=== PATIENT | female | born 1940 | race Caucasian/White ===

== ENCOUNTER 2019-04-13 19:40 | Emergency (ER) | payer MEDICARE, BC ==
[~2019-04-13 19:40] MED LIST: ISOVUE-370 76%-LOCM 1 ML ONE
[2019-04-13 21:19] LABS: #Eosinphils 0.4 thou/uL (0.0-0.7); #Lymphocytes 2.5 thou/uL (1.20-3.40); #Monocytes 0.5 thou/uL (0.11-0.59); #Neutrophils 2.7 thou/uL (1.40-6.50); %Basophils 0.5 % (0.0-1.0); %Eosinophils 5.9 % (0.0-10.0); %Lymphocytes 40.7 % (21.0-51.0); Hemoglobin 11.9 g/dL (12.0-16.0); Mean Corpuscular HGB CONC 34.5 g/dL (32.0-36.0); Mean Corpuscular Hemoglobin 30.1 pg (27.0-31.0); Mean Corpuscular Volume 87.4 fL (78.0-98.0); Mean Platelet Volume 6.8 fL (7.4-10.4); Platelet Count 211 thou/uL (130-400); Red Blood Cell (RBC) Count 3.96 mill/uL (4.20-5.40); White Blood Cell (WBC) Count 6.1 thou/uL (4.8-10.8)
--- NOTE | 2019-04-13 21:28 | RAD ---
RADIOGRAPH CHEST 1 VIEW: DATE: 04/13/2019 HISTORY: 79-year-old female with chest pain FINDINGS: There are no airspace densities, pulmonary edema, pneumothorax, or cardiomegaly. The lateral costophr enic angles are sharp. IMPRESSION: No acute cardiopulmonary findings.
--- NOTE | 2019-04-13 21:40 | CT ---
CT CERVICAL SPINE NONCONTRAST: DATE: 04/13/2019 HISTORY: 79-year-old female with cervicalgia FINDINGS: There are no jumped or perched facets. There is no evidence of acute fracture. The vertebral body hei ghts are maintained. There is no prevertebral soft tissue swelling. There is severe left-sided facet DJD at C2-3, C3-4, and C4-5. There is moderate right facet DJD at C3-4. The severe left facet D KATHIA causes a mild chronic grade 1 anterolisthesis of C4 on C5. There is no high-grade degenerative disc disease at any level. There is neural foraminal stenosis bilaterally at C3-4 and on the left at C4-5. No severe central spinal canal stenosis identified. There is irregular soft tissue density superiorly partial opacifying the left sphenoid air cell, which is incompletely imaged. There is appa rent osseous dehiscence between this disease sphenoid air cell and the sella turcica. IMPRESSION: 1. No evidence of acute fracture or acute traumatic subluxation. 2. Cervical spondylosis consisting of multilevel severe left-sided facet osteoarthrosis at upper and mid levels, and associated neural foraminal stenosis. 3. Severe partial opacification of sphenoid sinus. 4. Osseous dehiscence between sella turcica and this diseased left sphenoid air cell. Neurosurgical c onsultation and ENT consultation should be considered.
[2019-04-13 21:43] LABS: ALT (SGPT) 33 U/L (8-55); AST (SGOT) 27 U/L (5-34); Alkaline Phosphatase 66 U/L (40-110); Anion Gap 12 mmol/L (10-20); BUN (Urea Nitrogen) 15 mg/dL (9.8-20.1); Bilirubin, Total 0.2 mg/dL (0.2-1.2); CK (CPK) 124 U/L (29-168); Calc. Creatinine Clearance 0 mL/min (70-130); Calcium 9.2 mg/dL (7.8-10.44); Carbon Dioxide 25 mmol/L (23-31); Chloride 105 mmol/L (98-107); Estimated GFR-MDRD 59; Globulin 2.9 g/dL (2.4-3.5); Glucose 97 mg/dL (83-110); Lipase 83 U/L (8-78); Potassium 3.9 mmol/L (3.5-5.1); Protein, Total 6.9 g/dL (6.0-8.3); Sodium 138 mmol/L (136-145)
[2019-04-13] MEDS ORDERED: Morphine 4 MG/ML VIAL ONE (21:48)
--- NOTE | 2019-04-13 21:59 | RAD ---
Radiograph right shoulder 3 views: HISTORY: 79-year-old female with acute right shoulder pain FINDINGS: There is a tiny punctate soft tissue calcification very close to the lateral surface of the humeral h ead. No fracture, dislocation, or subluxation. Mild to moderate DJD at inferior aspect of glenohumeral joint. Mild DJD at AC joint. 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 The acute manifestation of this woul d be calcific tendinitis.
--- NOTE | 2019-04-13 22:46 | CT ---
CT ANGIOGRAM THORAX WITH CONTRAST: (CTA pulmonary angiogram) DATE: 04/13/2019 HISTORY: 78-year-old female with chest pain COMPARISON: No prior chest CTs. There is an abdominal and pelvic CT of 12/18/2018. TECHNIQUE: IV injection of iodinated contrast. Scan acquisition timing attempted to coincide with iodinated contrast bolus reaching maximal density in pulmonary arteries. 3-D MIP reconstructions. FINDINGS: In the left lower lobe, abutting the posterior lateral pleural surface, there is a tiny 0.4 x 0.4 x 0 .4 centimeter noncalcified pulmonary nodule which is unchanged since 4 months ago. At the anterolateral base of the right lower lobe, close to the pleural surface, there is what appear s to be a cluster of mildly dilated peripheral blood vessels. This is also unchanged since 4 months ago. The rest of the lungs are essentially clear. Trachea and major bronchi are patent and clear. No pleur al effusion, pulmonary edema, cardiomegaly, pneumothorax. No thoracic aortic aneurysm or dissection. No pericardial effusion. No evidence of pulmonary thromboembolism. No mediastinal or karla r lymphadenopathy. IMPRESSION: 1. No pulmonary thromboembolism. 2. No acute findings. 3. Nonspecific tiny 4 mm left lower lobe pulmonary nodule. Recommend serial follow-up chest CTs, kassie collins in 6 months.
[2019-04-13] MEDS ORDERED: Acetaminophen/Codeine 30-300mg Tablet ONE (23:06)
--- NOTE | 2019-04-16 15:22 | EKG ---
Test Reason : Blood Pressure : / mmHG Vent. Rate : 066 BPM Atrial Rate : 066 BPM P-R Int : 170 ms QRS Dur : 076 ms QT Int : 426 ms P-R-T Axes : 050 -14 011 degrees QTc Int : 446 ms Normal sinus rhythm Moderate voltage criteria for LVH, may be normal variant Borderline ECG Confirmed by CAROLA BLACK, ETHAN ([id number]), editor sound WINSOEM FELIX ([id number]) on 04/16/2019 3:22:13 PM Referred By: Confirmed By:ETHAN SRIVASTAVA MD
== END 2019-04-13 23:20 | disposition home or self-care (01) ==
LOC: ERS 19:40
DX: M75.31 Calcific tendinitis of right shoulder (principal); M54.12 Radiculopathy, cervical region; R91.1 Solitary pulmonary nodule; J32.9 Chronic sinusitis, unspecified; E11.9 Type 2 diabetes mellitus without complications
CPT/HCPCS: 36415; 71045; 71275; 72125; 80053; 82550; 83690; 83880; 84484; 85025; 85379; 85652; 86140; 93005; 96374; J2270; Q9966

== ENCOUNTER 2019-04-18 17:56 | Inpatient (IN) | payer MEDICARE, BC ==
[2019-04-18] MEDS ORDERED: Morphine 4 MG/ML VIAL ONE (18:50)
[2019-04-18] MEDS ORDERED: Ondansetron PF 4 MG/2 ML Vial ONE (18:50)
[2019-04-18 19:37] LABS: #Eosinphils 0.2 thou/uL (0.0-0.7); #Monocytes 0.5 thou/uL (0.11-0.59); #Neutrophils 7.2 thou/uL (1.40-6.50); %Basophils 0.1 % (0.0-1.0); %Eosinophils 2.1 % (0.0-10.0); %Lymphocytes 19.7 % (21.0-51.0); %Monocytes 5.4 % (0.0-10.0); %Neutrophils 72.7 % (42.0-75.0); Hemoglobin 12.6 g/dL (12.0-16.0); Mean Corpuscular HGB CONC 34.4 g/dL (32.0-36.0); Mean Corpuscular Hemoglobin 29.9 pg (27.0-31.0); Mean Platelet Volume 6.9 fL (7.4-10.4); Platelet Count 242 thou/uL (130-400); RBC Distribution Width 13.4 % (11.5-14.5)
[2019-04-18 19:52] LABS: Bacteria/HPF None Seen HPF (None Seen); Bilirubin Negative (Negative); Blood, Urine Negative (Negative); Clarity Clear (Clear); Glucose, Urine (Dipstick) Greater than 1000 mg/dL (Negative); Leukocyte 75 Leu/uL (Negative); Nitrite Negative (Negative); Protein, Urine (Dipstick) Negative (Neg-Trace); RBC/HPF 0-3 HPF (0-3); Squamous Epithelial 0-3 HPF (0-3); Urobilinogen Normal mg/dL (Less than 2)
[2019-04-18 19:55] LABS: ALT (SGPT) 27 U/L (8-55); AST (SGOT) 24 U/L (5-34); Albumin 4.1 g/dL (3.4-4.8); Alkaline Phosphatase 70 U/L (40-110); Anion Gap 14 mmol/L (10-20); BUN (Urea Nitrogen) 25 mg/dL (9.8-20.1); Bilirubin, Total 0.3 mg/dL (0.2-1.2); CRP (Inflammatory) 2.56 mg/dL (= or < 0.5); Calc. Creatinine Clearance 0 mL/min (70-130); Calcium 9.5 mg/dL (7.8-10.44); Carbon Dioxide 29 mmol/L (23-31); Chloride 96 mmol/L (98-107); Estimated GFR-MDRD 58; Globulin 3.1 g/dL (2.4-3.5); Glucose 213 mg/dL (83-110); Protein, Total 7.2 g/dL (6.0-8.3); Sodium 135 mmol/L (136-145)
--- NOTE | 2019-04-18 20:05 | CT ---
CT THORACIC SPINE: Technique: Axial tomograms obtained with multiplanar reconstruction. FINDINGS: Thoracic vertebrae maintain height and alignment. Moderate degenerative changes are noted. Osteophyte s are seen anterior and lateral with bridging osteophytes throughout the thoracic spine. No compressi on deformity. No acute fracture. No evidence of central canal stenosis. IMPRESSION: Degenerative changes of the thoracic spine. No evidence of acute process. POS: OFF
--- NOTE | 2019-04-18 21:44 | RAD ---
PORTABLE CHEST: History: Dyspnea. FINDINGS: Lungs are clear. Heart and mediastinum unremarkable. Vasculature normal. IMPRESSION: No acute findings. POS: OFF
[2019-04-18] MEDS ORDERED: Fentanyl 100 MCG/2 ML VIAL ONE (22:29)
[2019-04-19] MEDS ORDERED: Acetaminophen 650 MG Suppository PR PRN (01:37)
[2019-04-19] MEDS ORDERED: Ondansetron ODT 4 MG TAB PO PRN (01:37)
[2019-04-19] MEDS ORDERED: Ondansetron PF 4 MG/2 ML Vial IVP PRN (01:37)
[2019-04-19] MEDS ORDERED: Acetaminophen 325 MG TAB PO PRN (01:37)
[2019-04-19] MEDS ORDERED: Dextrose 50% Abboject 50 ML SYRINGE SLOW IVP PRN (01:38)
[2019-04-19] MEDS ORDERED: Dextrose 5% in Water 1,000 ML IV PRN (01:38)
[2019-04-19 05:19] LABS: #Eosinphils 0.3 thou/uL (0.0-0.7); #Lymphocytes 2.4 thou/uL (1.20-3.40); #Monocytes 0.7 thou/uL (0.11-0.59); %Basophils 0.5 % (0.0-1.0); %Lymphocytes 28.5 % (21.0-51.0); %Monocytes 7.8 % (0.0-10.0); %Neutrophils 59.2 % (42.0-75.0); Hemoglobin 11.8 g/dL (12.0-16.0); Mean Corpuscular HGB CONC 33.9 g/dL (32.0-36.0); Mean Corpuscular Volume 88.4 fL (78.0-98.0); Mean Platelet Volume 7.1 fL (7.4-10.4); Platelet Count 218 thou/uL (130-400); RBC Distribution Width 13.4 % (11.5-14.5); Red Blood Cell (RBC) Count 3.92 mill/uL (4.20-5.40); White Blood Cell (WBC) Count 8.4 thou/uL (4.8-10.8)
[2019-04-19 05:39] LABS: Anion Gap 12 mmol/L (10-20); BUN (Urea Nitrogen) 26 mg/dL (9.8-20.1); Calc. Creatinine Clearance 0 mL/min (70-130); Calcium 8.9 mg/dL (7.8-10.44); Carbon Dioxide 28 mmol/L (23-31); Chloride 98 mmol/L (98-107); Estimated GFR-MDRD 62; Glucose 194 mg/dL (83-110); Potassium 3.9 mmol/L (3.5-5.1); Sodium 134 mmol/L (136-145)
--- NOTE | 2019-04-19 06:03 | HP ---
PRIMARY CARE DOCTOR: The patient has no PCP. SEASONAL GREENERY BUNDLER: Maryann Calvillo MD. CODE STATUS: Full code. TIME OF EVALUATION: 0646. CHIEF COMPLAINT: Hypoxia. HISTORY OF PRESENT ILLNESS: This is an 79-year-old female patient, with past medical history of diabetes, hypertension, recurrent UTIs, came to the hospital after having an episode of hypoxia and right shoulder pain. The symptoms started around 11 a.m. with no clear triggers, no alleviating factors. Symptoms were severe. The pain was localized in the right shoulder. No specific radiation. REVIEW OF SYSTEMS: CONSTITUTIONAL: No fever, no chills, no generalized weakness. RESPIRATORY: The patient was short of breath and hypoxic. No sputum production. CARDIOVASCULAR: The patient has chest pain in the left shoulder. No specific radiation. No palpitation. GASTROINTESTINAL: No nausea, no vomiting, diarrhea, or abdominal pain. FINAL EXPENSE AGENT: No dizziness, headache, or feeling lightheaded. GENITOURINARY: No burning on urination. EXTREMITIES: No leg swelling. All other systems were reviewed and negative except for the findings mentioned above. PAST MEDICAL HISTORY: As mentioned in the HPI. FAMILY HISTORY: Reviewed, noncontributory for current presentation. PAST SURGICAL HISTORY: The patient had surgery for heel spurs, back surgery due to injury, brain surgery with tumor removal. Underlying surgical history of hysterectomy, right and left knee replacement. PSYCHIATRIC HISTORY: No previous psych history. SOCIAL HISTORY: No smoking history. No alcohol. No drugs. ALLERGIES: AMBIEN, ATORVASTATIN, BACTRIM, INDOMETHACIN, LISINOPRIL, METFORMIN, AND ZOLPIDEM TARTRATE. REPORTED MEDICATIONS: 1. Augmentin. 2. Prednisone. 3. Tylenol with Codeine No.3. 4. Valium. 5. Gabapentin. 6. Metoprolol. 7. Hydrochlorothiazide. 8. Aspirin. 9. Fenofibrate. 10. Losartan. 11. Levemir. 12. Methylprednisolone. PHYSICAL EXAMINATION: VITAL SIGNS: On presentation, the patient had systolic blood pressure in the range of 203/81 with heart rate 69, respiratory rate was 15, temperature 98.2, and O2 saturation 95% on room air. Saturation then dropped to the 80s, needing nasal cannula to keep saturation on normal range. The blood pressure after initial approach in ER got normalized. GENERAL APPEARANCE: The patient is alert, oriented, in no acute distress. HEENT: Eyes, normal conjunctivae. Moist oral mucosa. Anicteric. No JVD. RESPIRATORY: Bilateral air entry. No rales. No wheezes. Symmetric expansion. CARDIOVASCULAR: Normal rate. Regular rhythm. No murmurs. No gallops. No edema. ABDOMEN: Soft. Normal bowel sounds. MUSCULOSKELETAL: Baseline range of motion and strength. SKIN: Warm and intact. No pallor. No rash. No redness. Capillary refill seems to be intact. NEURO: No evidence of any new focal weakness. Cranial nerves seems to be intact. PSYCH: The patient is in good mood. No anxiety. Optimal judgment. IMAGING STUDIES: EKG was reviewed. The patient has normal sinus rhythm with a rate of 63 and moderate voltage criteria for LVH. Radiology; the patient has no fracture, no central canal stenosis, no acute degenerative changes. LABORATORY DATA: Reviewed. The patient has white count of 10, hemoglobin 12.6 , MCV 87, platelet count 242. Chemistry; sodium 135, potassium 4.0, chloride 96, carbon dioxide 39, anion gap 14, BUN of 25, creatinine 0.93, GFR 58, glucose 213. Troponin was negative. C-reactive protein 2.56. The urine was done, it was negative. ASSESSMENT AND PLAN: The patient will be placed in the hospital with following medical problems; 1. Hypoxia, unclear etiology. We will continue to monitor. Extensive workup was done and did not find any etiology at this point. We will monitor and adjust treatment as needed. 2. Uncontrolled diabetes type 2 versus hyperglycemia. Reconcile home medications and adjust treatment as needed. 3. Deep venous thrombosis prophylaxis. Job ID: [id number] [facility]
[2019-04-19 07:09] VITALS: BMI 29.9
--- NOTE | 2019-04-19 07:40 | CT ---
CT CERVICAL SPINE: Technique: Axial tomograms were obtained without IV contrast. Indications: Neck pain, right shoulder pain. Comparison: Recent CT cervical spine dated 04-18-19. FINDINGS: Vertebral bodies maintain height. Degenerative changes are again noted. There is osteopenia. There is a mild anterolisthesis at C4-5 which is unchanged from the prior exam. Posterior spondylosis is note d as described previously. Foraminal stenosis due to facet and uncinate hypertrophy at C4-5 on the le ft. Disc bulge and spondylosis abutt the cord at C4-5, C5-6 and C6-7 levels. There has been no interv al change. IMPRESSION: Degenerative changes of the cervical spine again noted. Unchanged from the recent exam of 04-18-19. POS: OFF
[2019-04-19] MEDS: Enoxaparin Sodium 40 MG/0.4 ML SYRINGE SC SCH (09:16)
[2019-04-19] MEDS ORDERED: Ibuprofen 200 MG TAB PO PRN (11:40)
[2019-04-19] MEDS ORDERED: Acetaminophen 500 MG TAB PO PRN (11:40)
[2019-04-19] MEDS ORDERED: Ketorolac Tromethamine 30 MG/ML VIAL IVP SCH (11:45)
[2019-04-19] MEDS ORDERED: Glimepiride 2 MG TAB PO SCH (12:00)
[2019-04-19] MEDS ORDERED: Alogliptin 25 MG TAB PO SCH (12:00)
[2019-04-19] MEDS ORDERED: Fenofibrate Nanocrystallized 145 MG TAB PO SCH (12:00)
[2019-04-19] MEDS ORDERED: Metoprolol Tartrate 25 MG TAB PO SCH (12:15)
[2019-04-19] MEDS ORDERED: Hydrochlorothiazide 25 MG TAB PO SCH (12:15)
[2019-04-19] MEDS: tiZANidine HCl 4 MG TAB PO PRN (12:16)
[2019-04-19] MEDS: Losartan 25 MG TAB PO SCH ×3 (12:16→12:18)
[2019-04-19] MEDS: Lidocaine 5% Patch TD SCH (12:17)
[2019-04-19] MEDS ORDERED: Furosemide 40 MG/4 ML VIAL SLOW IVP SCH (13:30)
[2019-04-19] MEDS ORDERED: Gadobenate Dimeglumine 529 MG/1 ML (20ML VIAL) ONE (13:50)
[2019-04-19 14:23] LABS: Actual Bicarbonate (HCO3a) 27.6 mEq/L (22-28); Carboxyhemoglobin (COHb) 0.5 gm% (0.0-3.0); Hemoglobin (Hb) 12.2 g/dL (12.0-16.0); O2 Tension (PaO2) 69.8 mmHg (> 60.0); pH, Arterial 7.39 (7.35-7.45)
[2019-04-19 14:24] LABS: Analyzer IN Cardio OR; Calcium, Ionized 1.14 mmol/L (1.12-1.30); Potassium - ABG Lab 3.98 mmol/L (3.70-5.30); Puncture Site LRA
--- NOTE | 2019-04-19 14:55 | CON ---
DATE OF CONSULTATION: 04/19/2019 SERVICE: Pulmonary Medicine. REASON FOR CONSULT: Hypoxemia. HISTORY OF PRESENT ILLNESS: The patient is an 79-year-old white female with past medical history significant for essentially nothing. She is a lifelong nonsmoker. She does not have any known lung problems, not on any lung medication. She presented to the Emergency Department because of arm discomfort. When she was in the ER, she was discovered to have marginal saturations that were between 86% and 90%. As such, she was placed in the hospital. She was put on supplemental oxygen. At no point during the time, did she complain of any significant dyspnea that limited her activity, shortness of breath beyond baseline. She has not had progressive dyspnea on exertion over the past several months. She denies any fevers or chills. The only time she coughs, is in the middle of the night. She is very positive for sleep apnea screen. She has never had a sleep study performed previously. Otherwise, she has no specific respiratory complaints. PAST MEDICAL HISTORY: 1. Type 2 diabetes mellitus. 2. Hypertension. 3. Recurrent urinary tract infections. 4. Chronic back and neck discomfort. PAST SURGICAL HISTORY: 1. Surgery for heel spur. 2. Back surgery x3 secondary to traumatic injury (falling off a ladder). 3. 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 4. Hysterectomy. 5. Bilateral knee replacements. SOCIAL HISTORY: Negative for alcohol, tobacco, or illicit drug use. She is a lifelong nonsmoker. She has no exposure to chemicals, dust, asbestos, or tuberculosis. FAMILY HISTORY: Noncontributory. ALLERGIES: AMBIEN, ATORVASTATIN, BACTRIM, INDOMETHACIN, LISINOPRIL, AND METFORMIN. MEDICATIONS LIST: Her inpatient medications were reviewed. A couple of small updates were made. We gave her a single dose of Lasix. REVIEW OF SYSTEMS: General, head, ears, eyes, nose, throat, cardiovascular, respiratory, GI, , musculoskeletal, neurologic, and skin are negative except as mentioned in the HPI. PHYSICAL EXAMINATION: VITAL SIGNS: Afebrile, pulse 78, blood pressure 170/72, respirations 20, and saturation 97% on 0.5 L nasal cannula. GENERAL: The patient is awake and alert, in no apparent distress. LUNGS: Decent air entry. There is no prolonged expiratory phase. There is some dependent crackles noted. HEART: Normal rate. Regular. ABDOMEN: Soft, nontender, and nondistended. Bowel sounds are positive. MUSCULOSKELETAL: No cyanosis or clubbing. No pitting in the bilateral lower extremities. LABORATORY DATA: WBC 8.4, hemoglobin 11.8, and platelets 218,000. Basic metabolic profile is otherwise unremarkable. Sodium 134 and gently downtrending. A pH of 7.38, pCO2 of 47, pO2 os 69, and corresponding saturation of 93% while wearing room air. IMAGIN. CT of the C-spine and T-spine demonstrates some subtle interstitial lung changes in the bilateral lung puente. There is also evidence of a touch of bronchiectasis, particularly in bibasilar distribution. 2. CTA of the chest from a week ago demonstrates no evidence of pulmonary emboli. At that point, there was no significant consolidating changes. A very small 4 mm pulmonary nodule was noted. ASSESSMENT: 1. Chronic hypercapnic respiratory failure. 2. Acute hypoxic respiratory failure. 3. Acute on chronic diastolic heart failure (suspected). 4. Obstructive sleep apnea (suspected). 5. Pulmonary nodule, 4 mm, requiring no further studies in this low risk individual. DISCUSSION AND PLAN: I am going to get an ultrasound of the heart. We will also give her a dose of Lasix to see if this helps liberate her from oxygen. In the outpatient setting, we will pursue pulmonary function studies, and a polysomnogram. Since she is completely asymptomatic to her low oxygen level, she can be discharged home without any supplemental oxygen. Further investigation will continue into the outpatient setting. I have counseled the patient that if she has increasing difficulty breathing, she will return to the Emergency Department. Critical Care will continue to follow along while she remains in-house for the time being, but I do not see any respiratory issues that specifically require her to stay in the hospital. She can be considered for discharge in 24 to 48 hours. 70 minutes have been devoted to this patient in various activities. I personally reviewed all imaging studies and laboratory data noted within this document. For fifty percent of this time, I was interacting with the patient at the bedside or coordinating care with the care team. For the remainder of the time I was immediately available to the patient in the hospital unit. Job ID: [id number] MTDD
--- NOTE | 2019-04-19 15:24 | MRI ---
MRI Brain W WO Con HISTORY: Severe right shoulder and arm pain. Abnormal CT of the cervical spine performed 04/13/2019. COMPARISON: CT of cervical spine of 04/13/2019. FINDINGS: There is generalized ventricular and sulcal prominence. There are fairly minimal age-relate d white matter changes seen on the T2 and FLAIR sequences. There is no signs of infarct or hemorrhage. Some additional smaller field of view images of the pituitary region were performed there is mucosal disease isolated to the sphenoid sinus the bony dehiscence of the sella turcica is difficult to appreciate. There is no sella mass. The pituitary is normal in size. IMPRESSION: Isolated mucosal change within the sphenoid sinus. The bony detail of the floor of the se lla is difficult to appreciate on MRI examination. Consideration for ENT consultation. The bony dehiscence may be better evaluated with CT.
--- NOTE | 2019-04-19 15:50 | CON ---
DATE OF CONSULTATION: 04/19/2019 HISTORY OF PRESENT ILLNESS: The patient is an 79-year-old female with a past medical history of diabetes, hypertension, chronic back pain, prior pituitary surgery who presents for evaluation of right-sided chest and arm pain associated with shortness of breath and dizziness. The patient reports symptoms began approximately 1 week ago with pain down the right arm. This progressed to include shortness of breath and dizziness yesterday, which prompted her visit to the ER. She was evaluated with chest x- ray, which was unremarkable as well as labs, which were fairly unremarkable other than slightly elevated glucose and mild hyponatremia. She did have a CT of the cervical spine, which was notable for multilevel degenerative changes. She also had CT cervical spine from 1 week ago, which showed questionable osseous dehiscence between the sella turcica and left sphenoid. Neurosurgical or ENT consultation was recommended. I visited the patient at the bedside. Her main complaint at this time is diffuse right arm pain. She denies any numbness or tingling, but does admit to some decreased strength over the last week. Denies any difficulty walking or any other associated symptoms at this time. PAST MEDICAL HISTORY: Diabetes, hypertension, chronic back pain. PAST SURGICAL HISTORY: Heel spur, hysterectomy, bilateral knee replacements, prior pituitary surgery, prior lumbar surgery due to injury. Denies any cervical surgeries. SOCIAL HISTORY: The patient does not smoke, drink, or use any drugs. ALLERGIES: SHE IS ALLERGIC TO AMBIEN, ATORVASTATIN, BACTRIM, INDOMETHACIN, LISINOPRIL, METFORMIN, AND ZOLPIDEM. PHYSICAL EXAMINATION: VITAL SIGNS: Temperature is 97.2, pulse is 73, she is 98% on room air, BP is 172/76. CONSTITUTIONAL: Awake, alert, and comfortable. HEENT: Head, normocephalic, atraumatic. Eyes, PERRLA. Extraocular movements intact. ENT, oral mucosa is pink, intact, and moist. The patient has normal voice. NECK: Nontender to palpation. CARDIAC: Regular rate and rhythm. PULMONARY: Symmetric chest expansion. No evidence of dyspnea. MUSCULOSKELETAL: Free active range of motion of all extremities. She has slightly decreased last pattern grader strength on the right. She has normal reflexes in the upper and lower extremities. Negative Lacey's. Negative clonus. NEURO: No focal neurologic deficits are appreciated. ASSESSMENT AND PLAN: The patient is an 79-year-old female, who has had progressive right-sided cervical radicular pain. She has also had some increased chest pain , shortness of breath, and dizziness. She was initially found to be hypoxic in the emergency room, is being worked up medically by the Medical team. With regard to her cervical radicular pain, she had planned to follow outpatient with her neurosurgeon at [facility], but considering it is worsening, I would like to have it evaluated at this time. We will plan to evaluate with a noncontrast cervical MRI, and we will also get a brain MRI with and without contrast considering the osseous dehiscence of the sella turcica and the sphenoid per Radiology recommendations. We will follow these MRI results. I have discussed the plan with Dr. Acosta. Job ID: [id number] MTDD
[2019-04-19] MEDS: HumaLOG 300 UNITS/3 ML VIAL SC PRN ×2 (16:36→23:42)
--- NOTE | 2019-04-19 17:58 | PDOC.HOSPP ---
- Subjective Encounter Date: 04/19/19 Encounter Time: 18:02 Subjective: Pt seen for followup re: acute hypoxic respiratory failure. c/o RUE pain. - Objective Vital Signs & Weight: Vital Signs (12 hours) Temp Pulse Resp BP Pulse Ox 04/19/19 16:28 97.9 F 63 16 140/62 98 04/19/19 12:38 97.7 F 78 20 170/72 H 97 04/19/19 09:00 97.2 F L 73 18 172/76 H 98 04/19/19 08:00 98 Weight Weight 163 lb 8 oz I&O: 04/18/19 04/19/19 04/20/19 06:59 06:59 06:59 Intake Total 720 Output Total 540 Balance 180 Result Diagrams: 04/19/19 04:29 04/19/19 04:29 Additional Labs: Accuchecks 04/19/19 04/19/19 04/19/19 16:26 10:56 05:48 POC Glucose 203 H 228 H 198 H Labs and MARs reviewed by me EKG Reviewed by me: Yes (Tele: NSR) Hospitalist ROS - Review of Systems Respiratory: reports: cough, dry Cardiovascular: denies: chest pain, palpitations, orthopnea, paroxysmal noc. dyspnea, edema, light headedness Gastrointestinal: denies: nausea, vomiting, abdominal pain, diarrhea, constipation, melena, hematochezia Musculoskeletal: reports: neck pain, arm pain. denies: shoulder pain, back pain , hand pain, leg pain, foot pain - Medication Medications: Active Medications Generic Name Dose Route Start Last Admin Trade Name Clementq PRN Reason Stop Dose Admin Acetaminophen 650 mg 04/19/19 01:37 04/19/19 09:17 Tylenol PO 650 mg Q4H PRN Administration Headache/Fever/Mild Pain (1-3) Enoxaparin Sodium 40 mg 04/19/19 09:00 04/19/19 09:16 Lovenox SC 40 mg 0900 [facility] Administration Insulin Human Lispro 0 units 04/19/19 01:38 04/19/19 16:36 Humalog SC 2 unit .MILD SLIDING SCALE PRN Administration Mild Correctional Scale Lidocaine 1 patch 04/19/19 12:00 04/19/19 12:17 Lidoderm 5% Patch TD 1 patch 1200 WILL Administration Tizanidine HCl 2 mg 04/19/19 11:40 04/19/19 12:16 Zanaflex PO 2 mg Q4H PRN Administration Muscle Spasm - Exam General Appearance: NAD Eye: anicteric sclera ENT: moist mucosa Neck: supple, no thyromegaly Heart: RRR, no rubs Respiratory - other findings: Bibasal crackles Gastrointestinal: soft, non-tender Extremities: no clubbing Neurological: cranial nerve grossly intact, no weakness, no focal deficits Psychiatric: normal affect, normal behavior Hosp A/P (1) Acute respiratory failure with hypoxia Code(s): J96.01 - ACUTE RESPIRATORY FAILURE WITH HYPOXIA Status: Acute (2) Right upper limb pain Code(s): M79.601 - PAIN IN RIGHT ARM Status: Acute (3) Chronic hypercapnic respiratory failure Code(s): J96.12 - CHRONIC RESPIRATORY FAILURE WITH HYPERCAPNIA Status: Chronic (4) DM2 (diabetes mellitus, type 2) Status: Chronic (5) HTN (hypertension) Code(s): I10 - ESSENTIAL (PRIMARY) HYPERTENSION Status: Chronic - Plan out of bed/ambulate Appreciate pulmonology input. Appreciate neurosurgery input. Will check CT brain to r/o sella dehiscence. If present, consult ENT. Resume home medications, monitor vital signs and titrate antihypertensives as needed. Continue accuchecks and insulin sliding scale. Trial toradol (pt denies aspirin allergy, is currently on aspirin at home).
--- NOTE | 2019-04-19 19:26 | CT ---
CT BRAIN WITHOUT CONTRAST: HISTORY: Evaluation of bony dehiscence of the sella turcica. COMPARISON: CT cervical spine dated 04/13/2019. MRI brain done today. FINDINGS: The ventricular and cisternal system shows fairly minimal atrophy. There are no signs of intracerebra l hemorrhage or extraaxial fluid collections. The mastoid air cells are clear. There is mucosal shen e within the sphenoid sinus and this exam does confirm the presence of a bony dehiscence of the floor of the sella. The area of bony dehiscence measures approximately 8 mm transversely x 7 mm in AP dime nsion. IMPRESSION: 1. No acute intracranial abnormalities. 2. Mucosal disease within the sphenoid sinus with bony dehiscence of the floor of the sella. POS: HANSA
[2019-04-19] MEDS ORDERED: Prevnar 13-Val Conj/PF 0.5 ML SYRINGE IM ONE (21:00)
[2019-04-19] MEDS ORDERED: FLU VACC TS2019-20(65YR UP)/PF 180 MCG/0.5 ML SYRINGE IM ONE (21:00)
[2019-04-19] MEDS ORDERED: INSULIN DETEMIR 65 UNIT SC SCH (21:00)
[2019-04-19] MEDS: Gabapentin 300 MG CAP PO SCH (21:12)
[2019-04-19] MEDS: Insulin Glargine 65 UNITS in Pre-Filled Syringe 1 EACH SC SCH (22:52)
[2019-04-19] MEDS: Lidocaine Patch Removal 1 EACH TOP SCH (23:43)
[2019-04-20] MEDS ORDERED: CRANBERRY FRUIT EXTRACT PO SCH (09:00)
[2019-04-20] MEDS: Hydrochlorothiazide 25 MG TAB PO SCH (09:16)
[2019-04-20] MEDS: Glimepiride 2 MG TAB PO SCH (09:17)
[2019-04-20] MEDS: Fenofibrate Nanocrystallized 145 MG TAB PO SCH (09:17)
[2019-04-20] MEDS: Alogliptin 25 MG TAB PO SCH (09:17)
[2019-04-20] MEDS: Gabapentin 300 MG CAP PO SCH ×2 (09:17→21:35)
[2019-04-20] MEDS: Aspirin 81 mg Enteric Coated Tablet PO SCH (09:17)
[2019-04-20] MEDS: Losartan 25 MG TAB PO SCH (09:18)
[2019-04-20] MEDS: Enoxaparin Sodium 40 MG/0.4 ML SYRINGE SC SCH (09:18)
[2019-04-20] MEDS: Metoprolol Tartrate 25 MG TAB PO SCH (09:18)
[2019-04-20] MEDS: Multivit, Therapeutic 1 TAB PO SCH (09:18)
[2019-04-20] MEDS: tiZANidine HCl 4 MG TAB PO PRN (09:27)
[2019-04-20] MEDS: Insulin Glargine 65 UNITS in Pre-Filled Syringe 1 EACH SC SCH ×2 (09:27→21:36)
--- NOTE | 2019-04-20 10:57 | MRI ---
Exam: MRI cervical spine without contrast HISTORY: Neck and right upper extremity pain, x3 days.. COMPARISON: None FINDINGS: Appropriate T1 marrow signal intensity of the cervical vertebra. Cervical spine vertebral body heigh t is maintained. No fracture. No significant STIR hyperintensity to suggest vertebral body edema or ligamentous injury. Visualized brain parenchyma, cervicomedullary junction, cervical cord, and the upper thoracic cord jim ve a normal size and signal intensity. Spondylolisthesis: 3 mm of anterolisthesis of C4 upon C5. 2.5 mm anterolisthesis of C7 upon T1. C2-C3: Minimal left paracentral disc osteophyte complex. No significant central canal stenosis or sig nificant neural foraminal narrowing. C3-C4: Broad-based disc osteophyte complex. Subarachnoid space is maintained. No significant central canal stenosis. Mild bilateral neural foraminal narrowing due to uncovertebral hypertrophy. C4-C5: Broad-based disc osteophyte complex with a central disc protrusion. No significant central can al stenosis. Right neural foramen is patent. Moderate left neural foraminal narrowing due to uncovertebral and facet hypertrophy. C5-C6: Broad-based disc osteophyte complex effaces the ventral subarachnoid space. There is a central disc protrusion, superimposed upon the disc osteophyte complex. There is mass effect upon the cervical cord with resultant moderate to severe central canal stenosis. No cord hyperintensity. Moder ate right and [id number]-xs-puimiyms left neural foraminal narrowing due to uncovertebral hypertrophy. C6-C7: Broad-based disc osteophyte complex with a central disc protrusion. Subarachnoid space is effa josefa. Moderate central canal stenosis. Mild to moderate bilateral neural foraminal narrowing due to uncovertebral hypertrophy. C7-T1: No significant central canal stenosis or significant neural foraminal narrowing. IMPRESSION: 1. Broad-based disc osteophyte complex at C4-C5, C5-C6 and C6-C7. Moderate to severe central canal st enosis at C5-C6 and moderate central canal stenosis at C6-C7. 2. Varying degrees of neural foraminal narrowing as detailed above. Transcribed Date/Time: 04/20/2019 11:35 AM
[2019-04-20] MEDS: HumaLOG 300 UNITS/3 ML VIAL SC PRN ×2 (12:08→21:37)
[2019-04-20] MEDS: Lidocaine 5% Patch TD SCH (13:31)
--- NOTE | 2019-04-20 18:08 | PDOC.HOSPP ---
- Subjective Encounter Date: 04/20/19 Encounter Time: 10:00 Subjective: Pt seen for followup re: acute hypoxic respiratory failure. Feels better, still has RUE pain. - Objective Vital Signs & Weight: Vital Signs (12 hours) Temp Pulse Resp BP Pulse Ox 04/20/19 17:40 97.8 F 68 16 128/61 93 L 04/20/19 11:27 98.5 F 69 14 129/61 94 L 04/20/19 08:15 97.7 F 68 16 166/68 H 99 04/20/19 08:00 97 Weight Weight 163 lb 8 oz I&O: 04/19/19 04/20/19 04/21/19 06:59 06:59 06:59 Intake Total 1200 720 Output Total 540 960 Balance 660 -240 Result Diagrams: 04/19/19 04:29 04/19/19 04:29 Additional Labs: Accuchecks 04/20/19 04/20/19 04/20/19 16:51 12:01 08:05 POC Glucose 180 H 288 H 115 H Hospitalist ROS - Review of Systems Cardiovascular: denies: chest pain, palpitations, orthopnea, paroxysmal noc. dyspnea, edema, light headedness Musculoskeletal: reports: neck pain, shoulder pain, arm pain. denies: back pain , hand pain, leg pain, foot pain - Medication Medications: Active Medications Generic Name Dose Route Start Last Admin Trade Name Freq PRN Reason Stop Dose Admin Acetaminophen 650 mg 04/19/19 01:37 04/19/19 09:17 Tylenol PO 650 mg Q4H PRN Administration Headache/Fever/Mild Pain (1-3) Alogliptin Benzoate 25 mg 04/20/19 09:00 04/20/19 09:17 Alogliptin PO 25 mg DAILY WILL Administration Aspirin 81 mg 04/20/19 09:00 04/20/19 09:17 Ecotrin PO 81 mg DAILY WILL Administration Enoxaparin Sodium 40 mg 04/19/19 09:00 04/20/19 09:18 Lovenox SC 40 mg 0900 WILL Administration Fenofibrate 145 mg 04/20/19 09:00 04/20/19 09:17 Tricor PO 145 mg DAILY WILL Administration Gabapentin 600 mg 04/19/19 21:00 04/20/19 09:17 Neurontin PO 600 mg BID WILL Administration Glimepiride 2 mg 04/20/19 08:00 04/20/19 09:17 Amaryl PO 2 mg QAM-WM WILL Administration Hydrochlorothiazide 25 mg 04/20/19 09:00 04/20/19 09:16 Hydrochlorothiazide PO 25 mg DAILY WILL Administration Insulin Glargine 65 units/ 0.65 mls @ 0 mls/hr 04/19/19 21:00 04/20/19 09:27 Miscellaneous Medication SC 0.65 mls BID WILL Administration As Directed Ibuprofen 400 mg 04/19/19 11:40 04/20/19 09:27 Motrin PO 400 mg Q6HR PRN Administration Fever>101/(Mi/Mod/Sev) Pain Insulin Human Lispro 0 units 04/19/19 01:38 04/20/19 12:08 Humalog SC 4 unit .MILD SLIDING SCALE PRN Administration Mild Correctional Scale Insulin Human Lispro 0 units 04/19/19 22:17 04/19/19 23:42 Humalog SC 2 unit .BEDTIME SLIDING SC PRN Administration Bedtime Correctional Scale Lidocaine 1 patch 04/19/19 12:00 04/20/19 13:31 Lidoderm 5% Patch TD 1 patch 1200 WILL Administration Losartan Potassium 25 mg 04/20/19 09:00 04/20/19 09:18 Cozaar PO 25 mg DAILY WILL Administration Metoprolol Tartrate 25 mg 04/20/19 09:00 04/20/19 09:18 Lopressor PO 25 mg DAILY WILL Administration Miscellaneous Medication 1 each 04/19/19 23:59 04/19/19 23:43 Lidocaine Patch Removal TOP 1 each 2359 WILL Administration Multivitamins 1 tab 04/20/19 09:00 04/20/19 09:18 Theragran PO 1 tab DAILY WILL Administration Tizanidine HCl 2 mg 04/19/19 11:40 04/20/19 09:27 Zanaflex PO 2 mg Q4H PRN Administration Muscle Spasm - Exam General Appearance: NAD Eye: anicteric sclera ENT: normocephalic atraumatic, moist mucosa Neck: supple, no JVD Heart: RRR, no rubs Respiratory: CTAB, no wheezes Gastrointestinal: soft, non-tender Extremities: no clubbing Neurological: no weakness Psychiatric: normal affect, normal behavior Hosp A/P (1) Acute respiratory failure with hypoxia Code(s): J96.01 - ACUTE RESPIRATORY FAILURE WITH HYPOXIA Status: Acute (2) Right upper limb pain Code(s): M79.601 - PAIN IN RIGHT ARM Status: Acute (3) Chronic hypercapnic respiratory failure Code(s): J96.12 - CHRONIC RESPIRATORY FAILURE WITH HYPERCAPNIA Status: Chronic (4) DM2 (diabetes mellitus, type 2) Status: Chronic (5) HTN (hypertension) Code(s): I10 - ESSENTIAL (PRIMARY) HYPERTENSION Status: Chronic - Plan plan discussed w/ family, out of bed/ambulate ENT consulted re: sella dehiscence. Monitor vital signs and titrate antihypertensives as needed. Continue accuchecks and insulin sliding scale. PRN pain meds. Await 2D echo report, MRI C-spine
[2019-04-20] MEDS: Ketorolac Tromethamine 30 MG/ML VIAL IVP PRN (21:52)
[2019-04-20] MEDS: Lidocaine Patch Removal 1 EACH TOP SCH (23:55)
--- NOTE | 2019-04-21 01:31 | CON ---
DATE OF CONSULTATION: CHIEF COMPLAINT: Dizziness. REASON FOR CONSULT: Dizziness and sellar dehiscence. HISTORY OF PRESENT ILLNESS: 79-year-old female patient presenting with arm pain to the emergency room and hypoxia. The patient was admitted for evaluation and for workup by primary team. The patient described dizziness as starting approximately one week ago and has been improving as time goes on. She notes that the dizziness is worse when standing up and then exerting herself. The patient denies any rhinorrhea, clear drainage from the nose or clear drainage from the ears. Denies vertigo, ear infections, or decreased hearing or new onset pulsatile tenderness. PAST MEDICAL HISTORY: Hypertension, diabetes, peripheral neuropathy, arm pain, hyperlipidemia, and chronic neck and back pain. PAST SURGICAL HISTORY: Noncontributory. CURRENT MEDICATIONS: Please see chart. ALLERGIES: NO KNOWN DRUG ALLERGIES. SOCIAL HISTORY: Nonsmoker. FAMILY HISTORY: Noncontributory. REVIEW OF SYSTEMS: SKIN: Negative. EYES: Negative. EARS, NOSE, AND THROAT: See HPI, otherwise negative. RESPIRATORY: Shortness of breath. CARDIOVASCULAR: Negative. GASTROINTESTINAL: Negative. MUSCULOSKELETAL: Negative. NEUROLOGIC: Positive for peripheral neuropathy. HEMATOLOGIC/LYMPHATIC/AND IMMUNOLOGIC: Negative. ENDOCRINE: Negative. PHYSICAL EXAMINATION: GENERAL: No acute distress. The patient is not hypoxic. There is no stridor. The patient is alert and oriented x3, and responding to commands. HEENT: Head and face; normocephalic, atraumatic. No facial skin lesions. No maxillary tenderness. No frontal tenderness. No parotid gland masses or tenderness. No submandibular gland mass or tenderness. Eyes, equally round and reactive to light. Extraocular movements intact. No nystagmus on lateral gaze. Ears, pinnae are normal. EAC are clear. TM intact with normal landmarks. No evidence of effusion or infection. TMs are mobile to autoinsufflation. Nose, external nose is normal. Nasal mucosa is healthy. Turbinates are healthy. There are no masses or lesions. Oral cavity, lips and gums, and oral mucosa are moist without lesions. Tongue and floor of mouth without masses. Palate and uvula without lesions and symmetric elevation. NECK: No lymphadenopathy. Trachea is midline. No thyroid masses palpable. No lymphadenopathy. NEUROLOGIC: Cranial nerves 3 through 12 are grossly intact. Mood and affect are normal. RADIOLOGY: CT head shows a small sellar dehiscence where no bone is seen, however, there is no soft tissue herniation. There is mild mucosal thickening in that area. However, there is no significant opacification of fluid collection. ASSESSMENT AND PLAN: 79-year-old female patient with recent admission for hypoxia and right upper arm pain. Imaging shows sellar dehiscence with no herniation of tissue and no obvious cerebrospinal fluid leak. The patient has some dizziness without true vertigo that seems to be improving and seems to be worsening with standing up and walking and also with exerting herself. Given the symptoms, the patient reasonably or likely has some peripheral neuropathy as well as some difficulty with exertion that is causing the dizziness. There is no signs of vestibular weakness or asymmetry or any vestibular system abnormality that would be causing any dizziness, which seems to be improving. Given the sellar dehiscence in the sinuses, there is no clear herniation of soft tissue and no cerebrospinal fluid leak. Given that this is asymptomatic, it is likely a radiographic finding without significant clinical impact to the patient. However, the patient would benefit from a dedicated CT maxillofacial sinus CT scan that can be done on an outpatient setting and patient can follow up in clinic. The patient was given card and information to make followup appointments in clinic as needed. If patient has clear drainage from the nose, she was instructed to present to the ER for collection and sent for Beta-2 transferrin evaluation. Job ID: [id number]
[2019-04-21] MEDS ORDERED: Lidocaine 5% Patch TD SCH (09:00)
[2019-04-21] MEDS: Ketorolac Tromethamine 30 MG/ML VIAL IVP PRN (09:37)
[2019-04-21] MEDS: Losartan 25 MG TAB PO SCH (09:42)
[2019-04-21] MEDS: Aspirin 81 mg Enteric Coated Tablet PO SCH (09:42)
[2019-04-21] MEDS: Hydrochlorothiazide 25 MG TAB PO SCH (09:42)
[2019-04-21] MEDS: Gabapentin 300 MG CAP PO SCH (09:43)
[2019-04-21] MEDS: Multivit, Therapeutic 1 TAB PO SCH (09:43)
[2019-04-21] MEDS: Metoprolol Tartrate 25 MG TAB PO SCH (09:43)
[2019-04-21] MEDS: Enoxaparin Sodium 40 MG/0.4 ML SYRINGE SC SCH (09:44)
[2019-04-21] MEDS: Fenofibrate Nanocrystallized 145 MG TAB PO SCH (09:44)
[2019-04-21] MEDS: Glimepiride 2 MG TAB PO SCH (10:05)
[2019-04-21] MEDS: Insulin Glargine 65 UNITS in Pre-Filled Syringe 1 EACH SC SCH (10:06)
[2019-04-21] MEDS ORDERED: Insulin Glargine 40 UNITS in Pre-Filled Syringe 1 EACH SC SCH ×2 (10:15→21:00)
--- NOTE | 2019-04-21 10:22 | PRG ---
DATE OF SERVICE: 04/20/2019 SERVICE: Pulmonary Medicine. INTERVAL HISTORY: The patient is doing really well from respiratory standpoint. Breathing comfortably. She has no complaints of chest discomfort, nausea, or vomiting. She remains on 0.5 L nasal cannula. I am going to go ahead and discontinue the oxygen, see where she lands. Otherwise, there has been no interval change to her condition. PHYSICAL EXAMINATION: VITAL SIGNS: Afebrile, pulse 66, blood pressure 128/61, respirations 16, and saturation 93% on room air. GENERAL: The patient is awake and alert, in no apparent distress. LUNGS: Decent air entry. There is no significant prolongation of the expiratory phase. There is no wheeze or crackles present. HEART: Normal rate and regular. ABDOMEN: Soft, nontender, and nondistended. Bowel sounds are positive. MUSCULOSKELETAL: No cyanosis or clubbing. No pitting in the bilateral lower extremities. NEUROLOGIC: Grossly nonfocal. IMAGING: Echocardiogram shows normal ejection fraction. PA systolic pressures are minimally elevated. ASSESSMENT: 1. Chronic hypercapnic respiratory failure. 2. Acute hypoxic respiratory failure, resolved. 3. Acute on chronic diastolic heart failure, returned to euvolemia. 4. Obstructive sleep apnea, suspected. 5. Pulmonary nodule, 4 mm, requiring no additional evaluation in the low risk individual. DISCUSSION AND PLAN: The patient is stable for transition out of the hospital from a purely respiratory standpoint. I will have her followup with me in clinic in the outpatient setting to pursue pulmonary function studies and a polysomnogram. At this point, she has no further requirements for inpatient Pulmonary/Critical Care opinion, and I will sign off. Please have her return to clinic to see me in roughly 4 to 6 weeks in the outpatient setting. Job ID: [id number]
--- NOTE | 2019-04-21 10:38 | PRG ---
DATE OF SERVICE: 04/21/2019 SUBJECTIVE: The patient is seen and examined. Agree with Jessica Patrick's evaluation, 04/19/2019. The patient is an 79-year-old woman, who was admitted for a respiratory distress, also with complaints of right arm pain for the last 3 weeks. She was evaluated from both cardiac and pulmonary perspective and is doing much better. In the course of her evaluation, imaging of the cervical spine was obtained including CT and MRI scan revealing significant degenerative findings. The most pronounced findings are at C5-C6, and C6-C7, where degenerative and cervical disk disease contribute to cervical stenosis and foraminal stenosis. She was incidentally discovered to have a bony dehiscence of the sella, presumably due to chronic sinusitis. MRI of the brain was otherwise unremarkable. IMPRESSION AND PLAN: From the perspective of her cervical disease, she can safely be mobilized at discharge. I will arrange for an epidural steroid injection of the cervical spine done as an outpatient to temporize her symptoms. Depending on her progress from this, we can consider surgical options if necessary. From the perspective of the bony dehiscence in the sella, this seems to be an incidental finding, and I have no specific recommendations in this regard. Job ID: [id number]
[2019-04-21] MEDS: Alogliptin 25 MG TAB PO SCH (13:15)
[2019-04-21 13:51] VITALS: BP 121/69; TEMP 97.4
--- NOTE | 2019-04-21 20:38 | DIS ---
DATE OF ADMISSION: 04/18/2019 DATE OF DISCHARGE: 04/21/2019 PRIMARY CARE PROVIDER: Alejandro Terry MD DISCHARGE DIAGNOSES: 1. Acute hypoxic respiratory failure. 2. Chronic hypercapnic respiratory failure. 3. Cervical spinal stenosis. 4. Sellar dehiscences. CONDITION OF PATIENT ON THE DAY OF DISCHARGE: Stable. I assessed Ms. Marsh on the day of discharge. She denies any chest pain or shortness of breath. Vital signs are stable. S1 and S2 are heard, regular. Lungs are clear to auscultation bilaterally. CONSULTATIONS DURING THIS HOSPITALIZATION: Pulmonology, Dr. Cabello; ENT, Dr. Oquendo; and Neurosurgery, Dr. Acosta. HOSPITAL COURSE: Ms. Marsh is a pleasant 79-year-old lady, who was admitted to [facility] on April 18, 2019, for right upper extremity pain and hypoxia. She was seen by Pulmonology Service. She improved with diuretics. A 2D echocardiogram showed left ventricular ejection fraction of 55% to 60%, normal-sized left atrium, structurally normal mitral valve, trace mitral regurgitation, structurally normal aortic valve with no significant stenosis or regurgitation and trace tricuspid regurgitation. Pulmonary artery systolic pressure was estimated at 31 mmHg. Arterial blood gases showed pH 7.39, pCO2 of 47, and PO2 of 69.8 on FiO2 of 24. She will follow up with Pulmonology Service for sleep study as an outpatient. She was also seen by Neurosurgery Service, because of complaint of neck pain and right upper extremity pain. Cervical spine MRI showed broad-based disk osteophyte complex at C4-C5, C5-C6, and C6-C7. She had gvvppcyg-me-hxswwo central canal stenosis at C5-C6 and moderate central canal stenosis at C6-C7. Neurosurgery Service will follow up with her as outpatient for epidural steroid injection and to follow up for surgery as well. She was seen by ENT Service because of concern over sellar dehiscence seen on MRI of the brain, as well as CT scan of the brain. They will follow up with her as outpatient. DISCHARGE MEDICATIONS: 1. Cranberry extract 84 mg daily. 2. Tricor 145 mg daily. 3. Gabapentin 600 mg 2 times a day. 4. Glimepiride 2 mg in the morning. 5. Hydrochlorothiazide 25 mg daily. 6. Levemir 40 units 2 times a day. 7. Losartan 25 mg daily. 8. Metoprolol tartrate 25 mg daily. 9. Multivitamins 1 capsule daily. 10. Januvia 100 mg daily. 11. Aspirin 81 mg daily. 12. Lidoderm patch 2 patches on for 12 hours a day, started during this hospitalization. 13. Acetaminophen p.r.n. 14. Zanaflex p.r.n. 15. Ibuprofen p.r.n. FOLLOWUP APPOINTMENTS: The patient is advised to follow up with primary care provider in 3 days time, with neurosurgeon in 2 weeks time, with ENT Service in 2 to 3 weeks and Pulmonary and Critical Care Medicine in 3 to 4 weeks time. On April 19, she had sodium 134, potassium 3.9, and creatinine 0.88. White count 8400, hemoglobin 11.8, and platelet count 218,000. Many thanks for allowing me to participate in your patient's care. Please feel free to contact me with any questions or concerns. The patient's BNP during this hospitalization was 87.3. DISCHARGE DESTINATION: Home. TIME SPENT: Total amount of time spent coordinating this discharge: 32 minutes. Job ID: [id number]
[2019-04-21] MEDS ORDERED: Lidocaine Patch Removal 1 EACH TOP SCH (21:00)
--- NOTE | 2019-04-22 07:28 | PQF ---
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 Clinical indicators are provided on the bottom of this form for your review Diagnosis: Acute on Chronic Diastolic heart failure Present on Admission (POA): [ ] Yes [ ] No [ ] Unable to determine Coding guidelines require hospitals to identify whether a diagnosis was present on admission (POA) or not. To accurately assign the appropriate POA indicator, this information must be clearly documented within the medical record. CLINICAL INDICATORS - SIGNS / SYMPTOMS / LABS Ejecetion Fraction = 55-60% - Documented in Echocardiogram Acute on Chronic Diastolic heart failur - Documented in Consultation Note on by Irineo Mattson MD Shortness of breath - respiratory failure - Documented in Consultation Note on 04/19 by Leobardo Lopez BNP level 87.3 on 04/18 - Documented in Laboratory result RISK FACTORS: Acute hypoxic respiratory failure - Documented in Consultation Note on 04/19 by Irineo Mattson MD Chronic hypercapnic respiratory failure - Documented in Consultation Note on by Irineo Mattson MD TREATMENT: We will also give her dose of lasix - Documented in Consultation Note on 04/19 by Irineo Mattson MD Pulmonary function study Echocardiogram [employer] Senior [employer] Qa Engineer [employer] Winform Viewer(This form is maintained as a part of the permanent medical record) 2014 [employer]. All Rights Reserved [email or web address] [not provided] MTDD
== END 2019-04-21 13:57 | disposition home or self-care (01) | DRG 189 ==
LOC: ERS 17:56 → 2NO 23:28 → T4-A 04-20 20:30
PROVIDERS: ADMIT Hospitalist; ATTEND Hospitalist
DX: J96.01 Acute respiratory failure with hypoxia (principal); I50.33 Acute on chronic diastolic (congestive) heart failure; T81.31XA Disruption of external operation (surgical) wound, not elsewhere classified, initial encounter; M48.02 Spinal stenosis, cervical region; I10 Essential (primary) hypertension; Z96.653 Presence of artificial knee joint, bilateral; M54.9 Dorsalgia, unspecified; G89.29 Other chronic pain; J96.12 Chronic respiratory failure with hypercapnia; E11.42 Type 2 diabetes mellitus with diabetic polyneuropathy; Z90.710 Acquired absence of both cervix and uterus; Z79.899 Other long term (current) drug therapy; Z79.82 Long term (current) use of aspirin; Z79.84 Long term (current) use of oral hypoglycemic drugs; Z88.8 Allergy status to other drugs, medicaments and biological substances
CPT/HCPCS: 36415; 36416; 70450; 70553; 71045; 72125; 72128; 72141; 80048; 80053; 81003; 81015; 82805; 83880; 84484; 85025; 85652; 86140; 93005; 93306; 96374; 96375; A9577; J1650; J1815; J1885; J1940; J2270; J2405; J3010

== ENCOUNTER 2019-06-22 19:30 | Outpatient (CLI) | payer MEDICARE, BC | END 2019-06-22 19:31 | disposition home or self-care (01) | LOC: SLEEPLAB 19:30 | PROVIDERS: ATTEND Internal Medicine | DX: G47.33 Obstructive sleep apnea (adult) (pediatric) (principal); R53.83 Other fatigue; R09.89 Other specified symptoms and signs involving the circulatory and respiratory systems; R51 Headache; E11.9 Type 2 diabetes mellitus without complications; I10 Essential (primary) hypertension; R06.83 Snoring; G47.10 Hypersomnia, unspecified; G47.00 Insomnia, unspecified; R06.89 Other abnormalities of breathing | CPT/HCPCS: 95810 ==

== ENCOUNTER 2019-12-15 10:19 | Outpatient (CLI) | payer MEDICARE, BC ==
--- NOTE | 2019-12-16 13:38 | NM ---
IODINE THYROID UPTAKE AND SCAN: HISTORY: An 79-year-old female with thyroid mass. Normal TSH of 1.37 (0.35-4.94) on 09/27/2019. RADIOPHARMACEUTICAL: 225 uCi Iodine-123 administered orally. FINDINGS: There is asymmetric uptake in the thyroid lobes with greater tracer localization in the right compare d to the left. The 24-hour uptake measures 14% (normal 10-30%). IMPRESSION: No evidence of hot or cold nodules. Further evaluation with thyroid ultrasound is recommended. POS: [facility]
== END 2019-12-15 10:20 | disposition home or self-care (01) ==
LOC: NM 10:19
PROVIDERS: ATTEND Family Medicine
DX: E07.89 Other specified disorders of thyroid (principal)
CPT/HCPCS: 78014; A9516

== ENCOUNTER 2019-12-23 10:24 | Outpatient (CLI) | payer MEDICARE, BC ==
--- NOTE | 2019-12-23 11:25 | ULT ---
Exam: Thyroid ultrasound/thyroid nodule COMPARISON: None FINDINGS: Thyroid isthmus: 0.33 cm Right thyroid lobe: 4.0 x 1.5 x 1.6 cm Left thyroid lobe: 3.0 x 0.9 x 1.2 cm Nodules: Ill-defined hypoechoic solid nodule in the midpole the right thyroid lobe measures 0.9 x 0.8 x 1.0 cm Ill-defined solid nodule in the mid to lower pole the right thyroid lobe measures 1.6 x 1.1 x 1.2 cm IMPRESSION: 2 separate solid nodule in the right thyroid lobe which have a BI-RADS level of TR 4, moderately susp icious. Follow-up ultrasound in one year is recommended
== END 2019-12-23 10:25 | disposition home or self-care (01) ==
LOC: BICULT 10:24
PROVIDERS: ATTEND Family Medicine
DX: E07.89 Other specified disorders of thyroid (principal); E04.1 Nontoxic single thyroid nodule
CPT/HCPCS: 76536

== ENCOUNTER 2020-05-10 10:40 | Outpatient (CLI) | payer MEDICARE, BC ==
--- NOTE | 2020-05-10 13:14 | CT ---
CT THORAX WITHOUT CONTRAST: Date: 05/10/2020 INDICATION: Follow-up pulmonary nodule. COMPARISON: Prior CTA of the chest dated 04/13/2019. FINDINGS: Areas of mild scarring in the right upper lobe and right lower lobe are stable appearing. These 4.0 m m and less pulmonary nodules within the right and left lower lobe are stable. No new pulmonary nodule s are evident. There are coronary artery thoracic aortic calcifications. There is a small hiatal piter ia. There are calcified granulomas in the spleen. The visualized adrenal glands appear within normal limits. There is partial visualization of instrumentation involving the lumbar spine. There is scatte red degenerative and osteoarthritic change. IMPRESSION: 1. Small bilateral pulmonary nodules within the lower lobes are stable to the comparison CT examinat ion. The largest is seen measuring 5.0 mm in the right lower lobe. A follow-up CT examination in 1 ye ar is recommended to document stability. 2. Other findings as above. POS: [facility]
== END 2020-05-10 10:41 | disposition home or self-care (01) ==
LOC: BICCT 10:40
PROVIDERS: ATTEND Internal Medicine Critical Care Medicine
DX: R91.8 Other nonspecific abnormal finding of lung field (principal); I25.10 Atherosclerotic heart disease of native coronary artery without angina pectoris; I70.0 Atherosclerosis of aorta; K44.9 Diaphragmatic hernia without obstruction or gangrene; J98.4 Other disorders of lung; D73.89 Other diseases of spleen; M19.90 Unspecified osteoarthritis, unspecified site
CPT/HCPCS: 71250

== ENCOUNTER 2021-04-23 13:44 | Outpatient (CLI) | payer MEDICARE, BC | END 2021-04-23 13:45 | disposition home or self-care (01) | LOC: BICULT 13:44 | PROVIDERS: ATTEND Family Medicine | DX: E07.89 Other specified disorders of thyroid (principal); E04.2 Nontoxic multinodular goiter | CPT/HCPCS: 76536 ==

== ENCOUNTER 2021-05-14 10:33 | Outpatient (CLI) | payer MEDICARE, BC | END 2021-05-14 10:34 | disposition home or self-care (01) | LOC: BICCT 10:33 | PROVIDERS: ATTEND Internal Medicine Critical Care Medicine | DX: R91.8 Other nonspecific abnormal finding of lung field (principal) | CPT/HCPCS: 71250 ==

== ENCOUNTER 2021-08-14 13:35 | Outpatient (CLI) | payer MEDICARE, BC | END 2021-08-14 13:36 | disposition home or self-care (01) | LOC: BICULT 13:35 | PROVIDERS: ATTEND Family Medicine | DX: N39.0 Urinary tract infection, site not specified (principal) | CPT/HCPCS: 76770 ==

== ENCOUNTER 2021-08-29 21:07 | Emergency (ER) | payer MEDICARE, BC ==
[2021-08-29 22:09] LABS: #Eosinphils 0.3 thou/uL (0.0-0.7); #Lymphocytes 4.3 thou/uL (1.20-3.40); #Monocytes 0.9 thou/uL (0.11-0.59); %Basophils 0.3 % (0.0-1.0); %Monocytes 7.8 % (0.0-10.0); Hemoglobin 12.8 g/dL (12.0-16.0); Mean Corpuscular HGB CONC 33.7 g/dL (32.0-36.0); Mean Corpuscular Hemoglobin 29.7 pg (27.0-31.0); Mean Corpuscular Volume 88.2 fL (78.0-98.0); Mean Platelet Volume 7.3 fL (7.4-10.4); Platelet Count 243 thou/uL (130-400); RBC Distribution Width 14.3 % (11.5-14.5); Red Blood Cell (RBC) Count 4.32 mill/uL (4.20-5.40); White Blood Cell (WBC) Count 11.6 thou/uL (4.8-10.8)
[2021-08-29 22:32] LABS: ALT (SGPT) 44 U/L (8-55); AST (SGOT) 62 U/L (5-34); Albumin 4.1 g/dL (3.4-4.8); Alkaline Phosphatase 79 U/L (40-110); Anion Gap 18 mmol/L (10-20); BUN (Urea Nitrogen) 38 mg/dL (9.8-20.1); Bilirubin, Total 0.2 mg/dL (0.2-1.2); Calc. Creatinine Clearance 0 mL/min (70-130); Calcium 9.6 mg/dL (7.8-10.44); Carbon Dioxide 25 mmol/L (23-31); Chloride 100 mmol/L (98-107); Globulin 3.7 g/dL (2.4-3.5); Glucose 213 mg/dL (83-110); Potassium 3.8 mmol/L (3.5-5.1); Protein, Total 7.8 g/dL (5.8-8.1); Sodium 139 mmol/L (136-145)
== END 2021-08-29 23:05 | disposition home or self-care (01) ==
LOC: ERS 21:07
DX: N17.9 Acute kidney failure, unspecified (principal); E86.0 Dehydration; I10 Essential (primary) hypertension; E10.9 Type 1 diabetes mellitus without complications
CPT/HCPCS: 70450; 80053; 84484; 85025; 93005

== ENCOUNTER 2021-11-14 21:36 | Observation (INO) | payer OTHER, MEDICARE, BC ==
[2021-11-14] MEDS ORDERED: Acetaminophen 500 MG TAB ONE (23:18)
[2021-11-14] MEDS ORDERED: Triple Antibiotic Oint 1 GM Packet ONE (23:19)
[2021-11-15 00:24] LABS: #Eosinphils 0.3 thou/uL (0.0-0.7); #Lymphocytes 2.7 thou/uL (1.20-3.40); #Monocytes 0.8 thou/uL (0.11-0.59); #Neutrophils 4.3 thou/uL (1.40-6.50); %Basophils 0.4 % (0.0-1.0); %Eosinophils 3.4 % (0.0-10.0); %Lymphocytes 33.2 % (21.0-51.0); %Monocytes 9.4 % (0.0-10.0); %Neutrophils 53.6 % (42.0-75.0); Hemoglobin 12.4 g/dL (12.0-16.0); Mean Corpuscular HGB CONC 32.5 g/dL (32.0-36.0); Mean Corpuscular Hemoglobin 29.5 pg (27.0-31.0); Mean Corpuscular Volume 90.5 fL (78.0-98.0); Mean Platelet Volume 7.1 fL (7.4-10.4); Platelet Count 212 thou/uL (130-400); RBC Distribution Width 14.2 % (11.5-14.5); White Blood Cell (WBC) Count 8.1 thou/uL (4.8-10.8)
[2021-11-15 00:39] LABS: INR-International Normal Ratio 1.1; Prothrombin Time 13.9 sec (12.0-14.7)
[2021-11-15 00:41] LABS: Bilirubin Negative (Negative); Blood, Urine Negative (Negative); Clarity Clear (Clear); Glucose, Urine (Dipstick) Normal (Negative); Ketone, Urine Negative (Negative); Leukocyte 250 Leu/uL (Negative); Nitrite 2+ (Negative); Protein, Urine (Dipstick) 10 mg/dL (Neg-Trace); Specific Gravity, Urine 1.029 (1.002-1.036); Urobilinogen Normal mg/dL (Less than 2); WBC/HPF 21-50 HPF (0-3); pH, Urine 5.5 (5.0-9.0)
[2021-11-15 00:42] LABS: Bacteria/HPF 1+ HPF (None Seen)
[2021-11-15 00:47] LABS: ALT (SGPT) 29 U/L (8-55); AST (SGOT) 29 U/L (5-34); Albumin 4.1 g/dL (3.4-4.8); Alkaline Phosphatase 82 U/L (40-110); Anion Gap 16 mmol/L (10-20); BUN (Urea Nitrogen) 26 mg/dL (9.8-20.1); Bilirubin, Total 0.3 mg/dL (0.2-1.2); Calc. Creatinine Clearance 0 mL/min (70-130); Calcium 9.5 mg/dL (7.8-10.44); Carbon Dioxide 25 mmol/L (23-31); Chloride 103 mmol/L (98-107); Globulin 3.3 g/dL (2.4-3.5); Glucose 137 mg/dL (83-110); Potassium 3.6 mmol/L (3.5-5.1); Protein, Total 7.4 g/dL (5.8-8.1); Sodium 140 mmol/L (136-145)
[2021-11-15] MEDS ORDERED: Morphine 2 MG/ML VIAL SLOW IVP PRN (01:35)
[2021-11-15] MEDS ORDERED: Ondansetron PF 4 MG/2 ML Vial IVP PRN (01:35)
[2021-11-15] MEDS ORDERED: hydrALAZINE 20 MG/ML VIAL SLOW IVP PRN (01:35)
[2021-11-15] MEDS ORDERED: Dextrose 5% in Water 1,000 ML IV PRN (01:35)
[2021-11-15] MEDS ORDERED: Dextrose 50% Abboject 50 ML SYRINGE SLOW IVP PRN (01:35)
[2021-11-15] MEDS ORDERED: Acetaminophen 500 MG TAB PO PRN (01:39)
[2021-11-15] MEDS ORDERED: Sodium Chloride 0.9% 1,000 ML IV SCH (01:45)
[2021-11-15 01:50] VITALS: BMI 31.7
[2021-11-15] MEDS ORDERED: Insulin Regular 300 UNITS/3 ML VIAL SC PRN ×2 (02:32)
[2021-11-15 03:42] LABS: SARS-CoV-2 NAA Rapid Test Not Detected (NotDetected)
[2021-11-15 05:11] LABS: Bacteria/HPF 2+ HPF (None Seen); Bilirubin Negative (Negative); Blood, Urine Negative (Negative); Clarity Turbid (Clear); Glucose, Urine (Dipstick) Normal (Negative); Ketone, Urine Negative (Negative); Leukocyte 250 Leu/uL (Negative); Nitrite Negative (Negative); Protein, Urine (Dipstick) 10 mg/dL (Neg-Trace); Renal Epithelial 0-3 HPF (None Seen); Urobilinogen Normal mg/dL (Less than 2); WBC/HPF Greater than 50 HPF (0-3); pH, Urine 5.5 (5.0-9.0)
[2021-11-15 05:12] LABS: Urine Culture Reflex No No
[2021-11-15] MEDS ORDERED: Acetaminophen 500 MG TAB PO SCH (08:00)
[2021-11-15] MEDS ORDERED: Senokot S 8.6-50 MG TAB PO SCH (09:00)
[2021-11-15] MEDS ORDERED: Polyethylene Glycol 3350 17 GM Packet PO SCH (09:00)
[2021-11-15] MEDS ORDERED: Metoprolol Tartrate 25 MG TAB PO SCH (09:00)
[2021-11-15] MEDS ORDERED: Famotidine 20 MG TAB PO SCH (09:00)
[2021-11-15 12:19] VITALS: BP 157/74; TEMP 98.3
== END 2021-11-15 13:30 | disposition home or self-care (01) ==
LOC: ERS 21:36 → SURG A 11-15 00:28
PROVIDERS: ADMIT Specialist; ATTEND Specialist
DX: S06.5X0A Traumatic subdural hemorrhage without loss of consciousness, initial encounter (principal); S00.81XA Abrasion of other part of head, initial encounter; I12.9 Hypertensive chronic kidney disease with stage 1 through stage 4 chronic kidney disease, or unspecified chronic kidney disease; E11.22 Type 2 diabetes mellitus with diabetic chronic kidney disease; N18.9 Chronic kidney disease, unspecified; N17.9 Acute kidney failure, unspecified; N39.0 Urinary tract infection, site not specified; E78.5 Hyperlipidemia, unspecified; E04.2 Nontoxic multinodular goiter; E89.3 Postprocedural hypopituitarism; M15.9 Polyosteoarthritis, unspecified; M85.80 Other specified disorders of bone density and structure, unspecified site; M47.812 Spondylosis without myelopathy or radiculopathy, cervical region; M50.323 Other cervical disc degeneration at C6-C7 level; Z79.4 Long term (current) use of insulin; Z79.84 Long term (current) use of oral hypoglycemic drugs; Z79.899 Other long term (current) drug therapy; Z88.0 Allergy status to penicillin; Z88.2 Allergy status to sulfonamides; Z88.8 Allergy status to other drugs, medicaments and biological substances; Z20.822 Contact with and (suspected) exposure to COVID-19; W01.198A Fall on same level from slipping, tripping and stumbling with subsequent striking against other object, initial encounter
CPT/HCPCS: 70450 ×2; 70486; 72125; 73110; 73130; 80053; 81001; 82962; 85025; 85610; 87077; 87086; 87186; 97116; 97139 ×4; 97535; U0002; 36415; 36416; 81003; 81015; G0378; J1815; J7050

== ENCOUNTER 2021-12-13 10:26 | Outpatient (CLI) | payer MEDICARE, BC | END 2021-12-13 10:27 | disposition home or self-care (01) | LOC: BICCT 10:26 | PROVIDERS: ATTEND Neurological Surgery | DX: S06.5X0A Traumatic subdural hemorrhage without loss of consciousness, initial encounter (principal) | CPT/HCPCS: 70450 ==

== ENCOUNTER 2021-12-25 10:25 | Outpatient (CLI) | payer MEDICARE, BC | END 2021-12-25 10:26 | disposition home or self-care (01) | LOC: BICMAMMO 10:25 | PROVIDERS: ATTEND Family Medicine | DX: Z12.31 Encounter for screening mammogram for malignant neoplasm of breast (principal) | CPT/HCPCS: 77063; 77067 ==

== ENCOUNTER 2022-04-22 10:02 | Outpatient (CLI) | payer MEDICARE, BC | END 2022-04-22 10:03 | disposition home or self-care (01) | LOC: BICULT 10:02 | PROVIDERS: ATTEND Family Medicine | DX: E07.9 Disorder of thyroid, unspecified (principal); E04.2 Nontoxic multinodular goiter | CPT/HCPCS: 76536 ==

== ENCOUNTER 2022-08-06 11:50 | Outpatient (CLI) | payer MEDICARE, BC | END 2022-08-06 11:51 | disposition home or self-care (01) | LOC: LABBT 11:50 | PROVIDERS: ATTEND Thoracic Surgery (Cardiothoracic Vascular Surgery) | DX: Z01.818 Encounter for other preprocedural examination (principal) | CPT/HCPCS: 80048; 85027; 86850; 86900; 86901; 93005; 93010 ==

== ENCOUNTER 2022-08-06 12:00 | Inpatient (IN) | payer MEDICARE, BC ==
[2022-08-06 13:55] LABS: Hemoglobin 12.8 g/dL (12.0-15.5); Mean Corpuscular HGB CONC 31.7 g/dL (32.0-36.0); Mean Corpuscular Hemoglobin 26.9 pg (27.0-33.0); Mean Corpuscular Volume 85.1 fl (81.6-98.3); Platelet Count 226 10x3/uL (150-450); RBC Distribution Width 15.9 % (11.5-14.5); Red Blood Cell (RBC) Count 4.75 10x6/uL (3.90-5.03); White Blood Cell (WBC) Count 8.9 10x3/uL (3.5-10.5)
[2022-08-06 14:20] LABS: Anion Gap 18 mmol/L (10-20); BUN (Urea Nitrogen) 24 mg/dL (9.8-20.1); Calc. Creatinine Clearance 0 mL/min (70-130); Calcium 9.5 mg/dL (7.8-10.44); Carbon Dioxide 22 mmol/L (23-31); Chloride 104 mmol/L (98-107); Estimated GFR 53; Glucose 238 mg/dL (83-110); Potassium 4.5 mmol/L (3.5-5.1); Sodium 139 mmol/L (136-145)
[2022-08-09] MEDS ORDERED: Dexamethasone 4 mg/ml Vial ONE (06:33)
[2022-08-09] MEDS ORDERED: Bupivacaine HCl 0.5%/Epinephrine 1:200,000/PF 30 ml Vial ONE (06:33)
[2022-08-09] MEDS ORDERED: Albumin 5% 500 ML ONE (06:33)
[2022-08-09] MEDS ORDERED: Heparin 10,000 UNITS/1 ML VIAL 30,000 UNITS in Sodium Chloride 0.9% 1,000 ML FS SCH (06:45)
[2022-08-09] MEDS ORDERED: Fentanyl 250 MCG/5 ML VIAL ONE (06:47)
[2022-08-09] MEDS ORDERED: Midazolam HCl 5 mg/5 ml Vial ONE (06:48)
[2022-08-09] MEDS ORDERED: Lidocaine 1% MPF 2 ML VIAL ONE (06:55)
[2022-08-09] MEDS ORDERED: Levofloxacin 500 mg/D5W 100 ml Premix Bag ONE (06:55)
[2022-08-09] MEDS ORDERED: Clindamycin/D5W 900 mg/50 ml Premix Bag ONE (07:21)
[2022-08-09] MEDS ORDERED: Heparin 5,000 UNITS/ML VIAL ONE (07:26)
[2022-08-09] MEDS ORDERED: Protamine Sulfate 250 MG/25 ML VIAL ONE (07:26)
[2022-08-09] MEDS ORDERED: Heparin 30,000 units/30 ml VIAL ONE (07:26)
[2022-08-09] MEDS ORDERED: Magnesium 5 GM/10 ML VIAL ONE (07:26)
[2022-08-09] MEDS ORDERED: Calcium Chloride 1 GM/10 ML Abboject SYRINGE ONE (07:26)
[2022-08-09] MEDS ORDERED: Papaverine 60 MG/2 ML VIAL ONE (07:26)
[2022-08-09] MEDS ORDERED: Aminocaproic Acid 5 GM/20 ML VIAL ONE (07:26)
[2022-08-09] MEDS ORDERED: Vecuronium 10 MG VIAL ONE (07:26)
[2022-08-09] MEDS ORDERED: Vancomycin 1 GM VIAL ONE (07:26)
[2022-08-09] MEDS ORDERED: Sodium Bicarb 50 MEQ/50 ML Abboject 8.4% SYRINGE ONE (07:26)
[2022-08-09] MEDS ORDERED: ePHEDrine 50 MG/ML VIAL ONE (07:26)
[2022-08-09] MEDS ORDERED: Potassium Chloride 60 MEQ/30 ML VIAL ONE (07:26)
[2022-08-09] MEDS ORDERED: Thrombin 5000 UNITS/5 ML VIAL ONE (07:26)
[2022-08-09] MEDS ORDERED: Mannitol 12.5 GM/50 ML ONE (07:26)
[2022-08-09] MEDS ORDERED: PROPOFOL 200 MG/20 ML VIAL ONE (07:26)
[2022-08-09] MEDS ORDERED: Cardioplegic Soln 1,000 ML BAG ONE (07:26)
[2022-08-09] MEDS ORDERED: Lidocaine 2% PF 100 mg/5 ml Syringe ONE (07:26)
[2022-08-09 08:15] LABS: SARS-CoV-2 NAA Rapid Test Not Detected (NotDetected)
[2022-08-09] MEDS ORDERED: Dextrose 50% Abboject 50 ML SYRINGE ONE (08:52)
[2022-08-09] MEDS ORDERED: Potassium Chloride 20 MEQ/100 ML PREMIX BAG IVPB PRN (10:19)
[2022-08-09] MEDS ORDERED: traMADol HCl 50 MG TAB PO PRN (10:19)
[2022-08-09] MEDS ORDERED: Post-Op Insulin Drip Protocol IVPB ONE (10:19)
[2022-08-09] MEDS ORDERED: Acetaminophen 325 MG TAB PO PRN (10:19)
[2022-08-09] MEDS ORDERED: Bisacodyl 5 MG TAB PO PRN (10:19)
[2022-08-09] MEDS ORDERED: niCARdipine 25 MG in Sodium Chloride 0.9% 250 ML 250 ML IVPB PRN (10:19)
[2022-08-09] MEDS ORDERED: Ipratropium/Albuterol 3 ML NEB NEB PRN (10:19)
[2022-08-09] MEDS ORDERED: Bisacodyl 10 MG SUPP PR PRN (10:19)
[2022-08-09] MEDS ORDERED: Hetastarch 6% 500 ML 500 ML IVPB PRN (10:19)
[2022-08-09] MEDS ORDERED: Mag-Al 1200 mg/1200 mg/30 ML UDCUP PO PRN (10:19)
[2022-08-09] MEDS ORDERED: NOREPINEPHRINE 8 MG/250 ML-D5W 250 ML IVPB PRN (10:19)
[2022-08-09] MEDS ORDERED: Morphine 2 MG/ML VIAL SLOW IVP PRN (10:19)
[2022-08-09] MEDS ORDERED: Guaifenesin DM 100-10/5 ML UDCUP PO PRN (10:19)
[2022-08-09] MEDS ORDERED: HUMULIN R 100 UNITS in Sodium Chloride 0.9% 100 ML IVPB SCH (10:30)
[2022-08-09] MEDS ORDERED: Insulin Regular 300 UNITS/3 ML VIAL SC PRN (10:30)
[2022-08-09] MEDS ORDERED: Dextrose 50% Abboject 50 ML SYRINGE SLOW IVP PRN (10:30)
[2022-08-09] MEDS ORDERED: Dextrose 5% in Water 1,000 ML IV PRN (10:30)
[2022-08-09 10:54] LABS: Actual Bicarbonate (HCO3a) 21.7 mEq/L (22-28); Base Excess (BEa) -3.1 mEq/L (-2.0 to +3.0); CO2 Tension 37.9 mmHg (35.0-45.0); Calcium, Ionized (arterial) 1.14 mmol/L (1.12-1.30); Carboxyhemoglobin (COHb) 0.2 gm% (0.0-3.0); Hemoglobin (Hb) 12.1 g/dL (12.0-16.0); O2 Tension (PaO2), arterial 92.3 mmHg (> 60.0); Potassium - ABG Lab 3.86 mmol/L (3.70-5.30); pH, Arterial 7.38 (7.35-7.45)
[2022-08-09 10:58] LABS: Puncture Site Arterial Line
[2022-08-09 10:59] LABS: ALV-art Gradient 288.125 mmHg (0-20)
[2022-08-09 11:06] LABS: #Eosinphils 0.1 thou/uL (0.0-0.7); #Lymphocytes 3.3 thou/uL (1.20-3.40); #Monocytes 0.3 thou/uL (0.11-0.59); #Neutrophils 7.3 thou/uL (1.40-6.50); %Basophils 0.1 % (0.0-1.0); %Eosinophils 1.3 % (0.0-10.0); %Lymphocytes 29.8 % (21.0-51.0); %Monocytes 2.8 % (0.0-10.0); %Neutrophils 66.1 % (42.0-75.0); Hemoglobin 11.4 g/dL (12.0-16.0); Mean Corpuscular HGB CONC 32.3 g/dL (32.0-36.0); Mean Corpuscular Hemoglobin 27.5 pg (27.0-31.0); Mean Corpuscular Volume 85.3 fl (78.0-98.0); Mean Platelet Volume 7.9 fL (7.4-10.4); Platelet Count 161 10x3/uL (130-400); RBC Distribution Width 15.1 % (11.5-14.5); Red Blood Cell (RBC) Count 4.15 mill/uL (4.20-5.40)
[2022-08-09] MEDS: Potassium Chloride 20 MEQ in Lactated Ringer's 1,000 ML IV SCH (11:12)
[2022-08-09 11:16] LABS: INR-International Normal Ratio 1.3; Prothrombin Time 16.6 sec (12.0-14.7)
[2022-08-09 11:17] LABS: PTT 28.4 sec (22.9-36.1)
[2022-08-09] MEDS: Fentanyl 100 MCG/2 ML VIAL SLOW IVP PRN ×3 (11:22→16:36)
[2022-08-09 11:24] LABS: Anion Gap 13 mmol/L (10-20); BUN (Urea Nitrogen) 16 mg/dL (9.8-20.1); Calc. Creatinine Clearance 66 mL/min (70-130); Calcium 7.9 mg/dL (7.8-10.44); Carbon Dioxide 20 mmol/L (23-31); Chloride 111 mmol/L (98-107); Estimated GFR 73; Glucose 155 mg/dL (83-110); Potassium 3.9 mmol/L (3.5-5.1); Sodium 140 mmol/L (136-145)
[2022-08-09] MEDS: Ketorolac Tromethamine 30 MG/ML VIAL IVP SCH ×2 (11:58→17:56)
[2022-08-09] MEDS: Clindamycin/D5W 900 MG in Premix Bag 1 BAG IVPB SCH ×2 (13:01→18:31)
[2022-08-09 14:28] LABS: Base Excess (BEa) -4.2 mEq/L (-2.0 to +3.0); CO2 Tension 44.1 mmHg (35.0-45.0); Calcium, Ionized (arterial) 1.14 mmol/L (1.12-1.30); Carboxyhemoglobin (COHb) 0.3 gm% (0.0-3.0); Hemoglobin (Hb) 12.9 g/dL (12.0-16.0); O2 Tension (PaO2), arterial 95.8 mmHg (> 60.0); Potassium - ABG Lab 4.56 mmol/L (3.70-5.30); pH, Arterial 7.32 (7.35-7.45)
[2022-08-09 14:35] LABS: ALV-art Gradient 134.275 mmHg (0-20); Puncture Site Arterial Line
[2022-08-09 16:21] LABS: Hemoglobin 11.3 g/dL (12.0-16.0)
[2022-08-09 16:36] LABS: Potassium 4.7 mmol/L (3.5-5.1)
[2022-08-09] MEDS: Famotidine/PF 20 mg/2ml Vial SLOW IVP SCH (20:24)
[2022-08-09] MEDS: Ondansetron PF 4 MG/2 ML Vial IVP PRN (22:16)
[2022-08-10] MEDS: Ketorolac Tromethamine 30 MG/ML VIAL IVP SCH ×5 (00:04→23:15)
[2022-08-10] MEDS: Clindamycin/D5W 900 MG in Premix Bag 1 BAG IVPB SCH ×2 (01:06→08:45)
[2022-08-10 04:07] LABS: #Lymphocytes 1.3 thou/uL (1.20-3.40); #Monocytes 0.8 thou/uL (0.11-0.59); #Neutrophils 8.2 thou/uL (1.40-6.50); %Basophils 0.4 % (0.0-1.0); %Eosinophils 0.3 % (0.0-10.0); %Lymphocytes 12.4 % (21.0-51.0); %Monocytes 7.8 % (0.0-10.0); %Neutrophils 79.1 % (42.0-75.0); Hemoglobin 10.6 g/dL (12.0-16.0); Mean Corpuscular HGB CONC 31.9 g/dL (32.0-36.0); Mean Corpuscular Hemoglobin 27.6 pg (27.0-31.0); Mean Corpuscular Volume 86.5 fl (78.0-98.0); Platelet Count 155 10x3/uL (130-400); RBC Distribution Width 15.2 % (11.5-14.5); Red Blood Cell (RBC) Count 3.84 mill/uL (4.20-5.40); White Blood Cell (WBC) Count 10.3 10x3/uL (4.8-10.8)
[2022-08-10 04:26] LABS: Anion Gap 12 mmol/L (10-20); BUN (Urea Nitrogen) 20 mg/dL (9.8-20.1); Calc. Creatinine Clearance 52 mL/min (70-130); Calcium 8.4 mg/dL (7.8-10.44); Carbon Dioxide 23 mmol/L (23-31); Chloride 111 mmol/L (98-107); Estimated GFR 50; Glucose 125 mg/dL (83-110); Potassium 5.2 mmol/L (3.5-5.1); Sodium 141 mmol/L (136-145)
[2022-08-10] MEDS: Potassium Chloride 20 MEQ in Lactated Ringer's 1,000 ML IV SCH (06:48)
[2022-08-10] MEDS: Magnesium 2 GM/50 ML(in water) 2 GM in Premix Bag 1 BAG IVPB SCH (08:45)
[2022-08-10] MEDS: Aspirin 325 MG TAB PO SCH (08:45)
[2022-08-10] MEDS: Famotidine/PF 20 mg/2ml Vial SLOW IVP SCH (08:45)
[2022-08-10] MEDS ORDERED: Insulin Glargine 30 UNITS/0.3 ML VIAL SC PRN (10:28)
[2022-08-10] MEDS: Ondansetron PF 4 MG/2 ML Vial IVP PRN (10:33)
[2022-08-10] MEDS ORDERED: Nitroglycerin 0.4 MG TAB (25 Tab Bottle) SL PRN (10:48)
[2022-08-10] MEDS ORDERED: Dextrose 50% Abboject 50 ML SYRINGE SLOW IVP PRN (12:45)
[2022-08-10] MEDS ORDERED: Dextrose 5% in Water 1,000 ML IV PRN (12:45)
[2022-08-10] MEDS ORDERED: HUMULIN R 100 UNITS in Sodium Chloride 0.9% 100 ML IVPB SCH (12:45)
[2022-08-10] MEDS ORDERED: Insulin Regular 300 UNITS/3 ML VIAL SC PRN (12:45)
[2022-08-10] MEDS: Insulin Regular 300 UNITS/3 ML VIAL SC PRN ×3 (12:55→20:49)
[2022-08-10] MEDS: traMADol HCl 50 MG TAB PO PRN (15:53)
[2022-08-10] MEDS: Fentanyl 100 MCG/2 ML VIAL SLOW IVP PRN (18:13)
[2022-08-10] MEDS: hydrALAZINE 20 MG/ML VIAL SLOW IVP PRN (19:41)
[2022-08-10] MEDS: Insulin Glargine 30 UNITS/0.3 ML VIAL SC SCH (20:49)
[2022-08-10] MEDS ORDERED: Insulin Glargine 30 UNITS/0.3 ML VIAL SC SCH (21:00)
[2022-08-11 04:28] LABS: #Eosinphils 0.5 thou/uL (0.0-0.7); #Lymphocytes 1.9 thou/uL (1.20-3.40); #Monocytes 0.7 thou/uL (0.11-0.59); #Neutrophils 5.7 thou/uL (1.40-6.50); %Basophils 0.2 % (0.0-1.0); %Eosinophils 5.4 % (0.0-10.0); %Lymphocytes 21.6 % (21.0-51.0); %Monocytes 7.7 % (0.0-10.0); %Neutrophils 65.1 % (42.0-75.0); Hemoglobin 10.3 g/dL (12.0-16.0); Mean Corpuscular Hemoglobin 27.5 pg (27.0-31.0); Mean Corpuscular Volume 85.9 fl (78.0-98.0); Platelet Count 136 10x3/uL (130-400); RBC Distribution Width 15.3 % (11.5-14.5); Red Blood Cell (RBC) Count 3.76 mill/uL (4.20-5.40); White Blood Cell (WBC) Count 8.8 10x3/uL (4.8-10.8)
[2022-08-11 04:41] LABS: Anion Gap 10 mmol/L (10-20); BUN (Urea Nitrogen) 27 mg/dL (9.8-20.1); Calc. Creatinine Clearance 55 mL/min (70-130); Calcium 8.3 mg/dL (7.8-10.44); Carbon Dioxide 25 mmol/L (23-31); Chloride 106 mmol/L (98-107); Estimated GFR 54; Glucose 99 mg/dL (83-110); Potassium 4.4 mmol/L (3.5-5.1); Sodium 137 mmol/L (136-145)
[2022-08-11] MEDS: Ketorolac Tromethamine 30 MG/ML VIAL IVP SCH ×4 (05:02→22:24)
[2022-08-11] MEDS: Glimepiride 2 MG TAB PO SCH (07:35)
[2022-08-11] MEDS: Magnesium 2 GM/50 ML(in water) 2 GM in Premix Bag 1 BAG IVPB SCH (08:10)
[2022-08-11] MEDS: traMADol HCl 50 MG TAB PO PRN (08:24)
[2022-08-11] MEDS: Aspirin 325 MG TAB PO SCH (08:50)
[2022-08-11] MEDS: Polyethylene Glycol 3350 17 GM Packet PO SCH ×2 (08:51→09:09)
[2022-08-11] MEDS: Alogliptin 25 MG TAB PO SCH (08:51)
[2022-08-11] MEDS: Insulin Glargine 30 UNITS/0.3 ML VIAL SC SCH ×2 (09:00→20:45)
[2022-08-11] MEDS ORDERED: HYDROcodone/Acetaminophen 5/325 mg Tablet PO PRN (10:48)
[2022-08-11] MEDS: HYDROcodone/Acetaminophen 5/325 mg Tablet PO PRN ×2 (11:26→16:52)
[2022-08-11] MEDS: Insulin Regular 300 UNITS/3 ML VIAL SC PRN ×3 (11:58→20:46)
[2022-08-11] MEDS ORDERED: Insulin Glargine 30 UNITS/0.3 ML VIAL SC PRN ×2 (12:32→12:38)
[2022-08-11] MEDS ORDERED: Amiodarone 150 MG, Admixture Fee 1 EACH in Dextrose 5% in Water 100 ML IVPB SCH (16:00)
[2022-08-11] MEDS: Amiodarone 450 MG, Admixture Fee 1 EACH in Dextrose 5% in Water 250 ML IVPB SCH ×2 (16:23→22:25)
[2022-08-11] MEDS: Ondansetron PF 4 MG/2 ML Vial IVP PRN (22:24)
[2022-08-12] MEDS: Ketorolac Tromethamine 30 MG/ML VIAL IVP SCH ×2 (04:14→11:34)
[2022-08-12] MEDS: Ondansetron PF 4 MG/2 ML Vial IVP PRN ×2 (04:15→23:02)
[2022-08-12] MEDS: Glimepiride 2 MG TAB PO SCH (06:42)
[2022-08-12] MEDS: Metoclopramide HCl 10 MG/2 ML VIAL IVP SCH ×4 (06:44→23:02)
[2022-08-12] MEDS ORDERED: Furosemide 40 MG TAB PO SCH (07:30)
[2022-08-12] MEDS: Potassium Chloride 10 MEQ TAB PO SCH ×2 (08:14→17:00)
[2022-08-12] MEDS: Aspirin 325 MG TAB PO SCH (08:16)
[2022-08-12] MEDS: Furosemide 40 MG TAB PO SCH ×2 (08:17→14:53)
[2022-08-12] MEDS ORDERED: Losartan 25 MG TAB PO SCH ×3 (09:00→19:00)
[2022-08-12] MEDS: Alogliptin 25 MG TAB PO SCH (09:51)
[2022-08-12] MEDS: Insulin Glargine 30 UNITS/0.3 ML VIAL SC SCH ×2 (09:51→20:33)
[2022-08-12] MEDS: Amiodarone 200 MG TAB PO SCH ×2 (09:55→20:34)
[2022-08-12] MEDS: Polyethylene Glycol 3350 17 GM Packet PO SCH (10:14)
[2022-08-12] MEDS: hydrALAZINE 20 MG/ML VIAL SLOW IVP PRN (11:31)
[2022-08-12] MEDS: Amiodarone 450 MG, Admixture Fee 1 EACH in Dextrose 5% in Water 250 ML IVPB SCH (15:38)
[2022-08-12 16:12] VITALS: BMI 35.4
[2022-08-12] MEDS: Insulin Regular 300 UNITS/3 ML VIAL SC PRN ×2 (17:08→20:33)
[2022-08-13] MEDS: Metoclopramide HCl 10 MG/2 ML VIAL IVP SCH ×2 (06:14→10:44)
[2022-08-13] MEDS: Amiodarone 450 MG, Admixture Fee 1 EACH in Dextrose 5% in Water 250 ML IVPB SCH (06:14)
[2022-08-13] MEDS: Glimepiride 2 MG TAB PO SCH (06:14)
[2022-08-13] MEDS: Insulin Regular 300 UNITS/3 ML VIAL SC PRN ×3 (06:33→21:32)
[2022-08-13] MEDS: Alogliptin 25 MG TAB PO SCH (07:18)
[2022-08-13] MEDS: Aspirin 325 MG TAB PO SCH (07:18)
[2022-08-13] MEDS: Furosemide 40 MG TAB PO SCH ×2 (07:18→14:45)
[2022-08-13] MEDS: Losartan 25 MG TAB PO SCH ×2 (07:19→20:45)
[2022-08-13] MEDS: Amiodarone 200 MG TAB PO SCH ×2 (07:20→20:45)
[2022-08-13] MEDS: Potassium Chloride 10 MEQ TAB PO SCH ×2 (07:20→14:45)
[2022-08-13] MEDS: Insulin Glargine 30 UNITS/0.3 ML VIAL SC SCH ×2 (07:20→20:44)
[2022-08-13] MEDS: hydrALAZINE 20 MG/ML VIAL SLOW IVP PRN (08:00)
[2022-08-13] MEDS: Ondansetron PF 4 MG/2 ML Vial IVP PRN (08:02)
[2022-08-13] MEDS: Polyethylene Glycol 3350 17 GM Packet PO SCH (08:11)
[2022-08-13] MEDS ORDERED: Amlodipine 5 MG TAB PO SCH (09:45)
[2022-08-14 04:39] LABS: Anion Gap 14 mmol/L (10-20); BUN (Urea Nitrogen) 26 mg/dL (9.8-20.1); Calc. Creatinine Clearance 65 mL/min (70-130); Calcium 9.2 mg/dL (7.8-10.44); Carbon Dioxide 29 mmol/L (23-31); Chloride 102 mmol/L (98-107); Estimated GFR 65; Glucose 84 mg/dL (83-110); Potassium 3.5 mmol/L (3.5-5.1); Sodium 141 mmol/L (136-145)
[2022-08-14] MEDS: Glimepiride 2 MG TAB PO SCH (06:37)
[2022-08-14] MEDS: Amlodipine 5 MG TAB PO SCH (07:47)
[2022-08-14] MEDS: Losartan 25 MG TAB PO SCH ×2 (07:47→20:28)
[2022-08-14] MEDS: Furosemide 40 MG TAB PO SCH ×2 (07:47→12:31)
[2022-08-14] MEDS: Aspirin 325 MG TAB PO SCH (07:47)
[2022-08-14] MEDS: Amiodarone 200 MG TAB PO SCH ×3 (07:47→20:28)
[2022-08-14] MEDS: Polyethylene Glycol 3350 17 GM Packet PO SCH (07:48)
[2022-08-14] MEDS: Insulin Glargine 30 UNITS/0.3 ML VIAL SC SCH ×2 (07:48→20:26)
[2022-08-14] MEDS: Alogliptin 25 MG TAB PO SCH (07:48)
[2022-08-14] MEDS: Potassium Chloride 10 MEQ TAB PO SCH ×2 (07:48→16:05)
[2022-08-14] MEDS ORDERED: Magnesium 2 GM/50 ML(in water) 2 GM in Premix Bag 1 BAG IVPB SCH (11:00)
[2022-08-14] MEDS: Insulin Regular 300 UNITS/3 ML VIAL SC PRN (11:34)
[2022-08-15 04:09] LABS: Anion Gap 14 mmol/L (10-20); BUN (Urea Nitrogen) 29 mg/dL (9.8-20.1); Calc. Creatinine Clearance 52 mL/min (70-130); Carbon Dioxide 29 mmol/L (23-31); Chloride 98 mmol/L (98-107); Estimated GFR 53; Glucose 136 mg/dL (83-110); Magnesium 2.2 mg/dL (1.6-2.6); Potassium 3.6 mmol/L (3.5-5.1); Sodium 137 mmol/L (136-145)
[2022-08-15] MEDS: Insulin Regular 300 UNITS/3 ML VIAL SC PRN (06:14)
[2022-08-15] MEDS: Glimepiride 2 MG TAB PO SCH (06:18)
[2022-08-15] MEDS ORDERED: Furosemide 40 MG TAB PO SCH (09:00)
[2022-08-15] MEDS: Alogliptin 25 MG TAB PO SCH (10:10)
[2022-08-15] MEDS: Aspirin 325 MG TAB PO SCH (10:10)
[2022-08-15] MEDS: Losartan 25 MG TAB PO SCH (10:11)
[2022-08-15] MEDS: Amlodipine 5 MG TAB PO SCH (10:11)
[2022-08-15] MEDS: Amiodarone 200 MG TAB PO SCH (10:12)
[2022-08-15] MEDS: Potassium Chloride 10 MEQ TAB PO SCH (10:12)
[2022-08-15] MEDS: Insulin Glargine 30 UNITS/0.3 ML VIAL SC SCH (10:12)
[2022-08-15] MEDS: Polyethylene Glycol 3350 17 GM Packet PO SCH (10:12)
[2022-08-15 11:10] VITALS: BP 131/51
[2022-08-15 12:08] VITALS: TEMP 98.3
== END 2022-08-15 12:15 | disposition home or self-care (01) | DRG 236 ==
LOC: SURG A 08-09 05:39 → CCU 08-09 09:56
PROVIDERS: ADMIT Thoracic Surgery (Cardiothoracic Vascular Surgery); ATTEND Thoracic Surgery (Cardiothoracic Vascular Surgery)
PROC: 02100Z9 Bypass Coronary Artery, One Artery from Left Internal Mammary, Open Approach (ICD-10-PCS; principal; 2022-08-09)
PROC: 021009W Bypass Coronary Artery, One Artery from Aorta with Autologous Venous Tissue, Open Approach (ICD-10-PCS; 2022-08-09)
PROC: 06BQ0ZZ Excision of Left Saphenous Vein, Open Approach (ICD-10-PCS; 2022-08-09)
PROC: 5A1221Z Performance of Cardiac Output, Continuous (ICD-10-PCS; 2022-08-09)
PROC: 02L70ZK Occlusion of Left Atrial Appendage, Open Approach (ICD-10-PCS; 2022-08-09)
DX: I25.10 Atherosclerotic heart disease of native coronary artery without angina pectoris (principal); I48.92 Unspecified atrial flutter; Z20.822 Contact with and (suspected) exposure to COVID-19; I10 Essential (primary) hypertension; E78.2 Mixed hyperlipidemia; E11.9 Type 2 diabetes mellitus without complications; I48.0 Paroxysmal atrial fibrillation; E87.6 Hypokalemia; Z88.1 Allergy status to other antibiotic agents; Z88.8 Allergy status to other drugs, medicaments and biological substances; Z88.2 Allergy status to sulfonamides; Z79.899 Other long term (current) drug therapy; Z79.82 Long term (current) use of aspirin; Z79.84 Long term (current) use of oral hypoglycemic drugs; Z79.4 Long term (current) use of insulin
CPT/HCPCS: 36416; 71045; 80048; 82805; 83735; 85025; 85027; 85610; 85730; 86850; 86900; 86901; 93005; 93010; 93798; 94002; C1751; J0282; J0360; J1100; J1642; J1644; J1815; J1885; J1956; J2001; J2150; J2250; J2405; J2440; J2704; J2720; J2765; J3010; J3370; J3475; J3480; J3490; J7070; J7120; J7999; P9045; S0017; S0028; U0002

== ENCOUNTER 2022-08-26 20:17 | Observation (INO) | payer MEDICARE, BC ==
[~2022-08-26 20:17] MED LIST changes: -ISOVUE-370 76%-LOCM 1 ML ONE; +Iopamidol-370 76% 500 ML 1 ML ONE
[2022-08-26 21:00] LABS: #Basophils 0.1 thou/uL (0.0-0.2); #Eosinphils 0.9 thou/uL (0.0-0.7); #Lymphocytes 2.9 thou/uL (1.20-3.40); #Monocytes 0.8 thou/uL (0.11-0.59); #Neutrophils 6.3 thou/uL (1.40-6.50); %Basophils 0.7 % (0.0-1.0); %Eosinophils 8.3 % (0.0-10.0); %Lymphocytes 26.6 % (21.0-51.0); %Neutrophils 57.5 % (42.0-75.0); Mean Corpuscular HGB CONC 32.7 g/dL (32.0-36.0); Mean Corpuscular Hemoglobin 27.8 pg (27.0-31.0); Mean Corpuscular Volume 84.8 fl (78.0-98.0); Mean Platelet Volume 7.8 fL (7.4-10.4); Platelet Count 319 10x3/uL (130-400); RBC Distribution Width 15.3 % (11.5-14.5); Red Blood Cell (RBC) Count 3.98 mill/uL (4.20-5.40)
[2022-08-26 21:10] LABS: INR-International Normal Ratio 1.1; PTT 24.4 sec (22.9-36.1); Prothrombin Time 14.4 sec (12.0-14.7)
[2022-08-26 21:41] LABS: CKMB 2.1 ng/mL (0-6.6)
[2022-08-26 21:59] LABS: Bilirubin Negative (Negative); Blood, Urine Negative (Negative); Clarity Clear (Clear); Glucose, Urine (Dipstick) Greater than 1000 mg/dL (Negative); Ketone, Urine Negative (Negative); Leukocyte 250 Leu/uL (Negative); Nitrite 2+ (Negative); Protein, Urine (Dipstick) Negative (Neg-Trace); RBC/HPF 0-3 HPF (0-3); Specific Gravity, Urine 1.023 (1.002-1.036); Squamous Epithelial 0-3 HPF (0-3); Urobilinogen Normal mg/dL (Less than 2)
[2022-08-26 21:59] LABS: ALT (SGPT) 24 U/L (8-55); AST (SGOT) 33 U/L (5-34); Alkaline Phosphatase 89 U/L (40-110); Anion Gap 16 mmol/L (10-20); BUN (Urea Nitrogen) 22 mg/dL (9.8-20.1); Bilirubin, Total 0.2 mg/dL (0.2-1.2); Calc. Creatinine Clearance 0 mL/min (70-130); Carbon Dioxide 21 mmol/L (23-31); Chloride 105 mmol/L (98-107); Estimated GFR 50; Globulin 3.2 g/dL (2.4-3.5); Glucose 148 mg/dL (83-110); Potassium 5.2 mmol/L (3.5-5.1); Protein, Total 7.2 g/dL (5.8-8.1); Sodium 137 mmol/L (136-145)
[2022-08-26 22:00] LABS: Bacteria/HPF 1+ HPF (None Seen)
[2022-08-26] MEDS ORDERED: cefTRIAXone\\ROCEPHIN 2 GM VIAL ONE (22:41)
[2022-08-26] MEDS ORDERED: Acetaminophen 325 MG TAB PO PRN (23:52)
[2022-08-26] MEDS ORDERED: Ondansetron PF 4 MG/2 ML Vial IVP PRN (23:52)
[2022-08-27] MEDS ORDERED: Furosemide 20 MG/2 ML VIAL ONE ×2 (00:02→06:06)
[2022-08-27] MEDS ORDERED: Dextrose 50% Abboject 50 ML SYRINGE SLOW IVP PRN (00:07)
[2022-08-27] MEDS ORDERED: HumaLOG 300 UNITS/3 ML VIAL SC PRN ×2 (00:07)
[2022-08-27] MEDS ORDERED: Dextrose 5% in Water 1,000 ML IV PRN (00:07)
[2022-08-27] MEDS ORDERED: Furosemide 20 MG/2 ML VIAL SLOW IVP SCH ×2 (00:15→06:00)
[2022-08-27 01:58] LABS: Troponin I 0.083 ng/mL (< 0.028)
[2022-08-27 04:59] LABS: #Eosinphils 0.9 thou/uL (0.0-0.7); #Lymphocytes 2.5 thou/uL (1.20-3.40); #Monocytes 0.6 thou/uL (0.11-0.59); #Neutrophils 5.3 thou/uL (1.40-6.50); %Basophils 0.4 % (0.0-1.0); %Eosinophils 9.6 % (0.0-10.0); %Lymphocytes 26.4 % (21.0-51.0); %Monocytes 6.7 % (0.0-10.0); %Neutrophils 56.8 % (42.0-75.0); Hemoglobin 10.6 g/dL (12.0-16.0); Mean Corpuscular HGB CONC 33.1 g/dL (32.0-36.0); Mean Corpuscular Hemoglobin 28.3 pg (27.0-31.0); Mean Corpuscular Volume 85.3 fl (78.0-98.0); Mean Platelet Volume 7.3 fL (7.4-10.4); Platelet Count 306 10x3/uL (130-400); RBC Distribution Width 15.3 % (11.5-14.5); Red Blood Cell (RBC) Count 3.73 mill/uL (4.20-5.40); White Blood Cell (WBC) Count 9.3 10x3/uL (4.8-10.8)
[2022-08-27 05:11] LABS: SARS-CoV-2 NAA Rapid Test Not Detected (NotDetected)
[2022-08-27 05:15] LABS: Anion Gap 14 mmol/L (10-20); BUN (Urea Nitrogen) 19 mg/dL (9.8-20.1); Calc. Creatinine Clearance 0 mL/min (70-130); Calcium 8.9 mg/dL (7.8-10.44); Carbon Dioxide 24 mmol/L (23-31); Chloride 103 mmol/L (98-107); Estimated GFR 57; Glucose 60 mg/dL (83-110); Potassium 3.7 mmol/L (3.5-5.1); Sodium 137 mmol/L (136-145)
[2022-08-27 05:21] LABS: Troponin I 0.076 ng/mL (< 0.028)
[2022-08-27 07:31] VITALS: TEMP 98
[2022-08-27 07:54] VITALS: BP 128/66
== END 2022-08-27 08:13 | disposition home or self-care (01) ==
LOC: ERS 20:17 → ERHOLD 23:19
PROVIDERS: ADMIT Thoracic Surgery (Cardiothoracic Vascular Surgery); ATTEND Thoracic Surgery (Cardiothoracic Vascular Surgery)
DX: R06.02 Shortness of breath (principal); R07.89 Other chest pain; E87.5 Hyperkalemia; R82.90 Unspecified abnormal findings in urine; I25.10 Atherosclerotic heart disease of native coronary artery without angina pectoris; I10 Essential (primary) hypertension; E78.5 Hyperlipidemia, unspecified; E11.9 Type 2 diabetes mellitus without complications; Z88.0 Allergy status to penicillin; Z88.1 Allergy status to other antibiotic agents; Z88.2 Allergy status to sulfonamides; Z88.8 Allergy status to other drugs, medicaments and biological substances; Z95.1 Presence of aortocoronary bypass graft; Z20.822 Contact with and (suspected) exposure to COVID-19
CPT/HCPCS: 71045; 71275; 80048; 80053; 82553; 82962; 83605; 83880; 84484 ×3; 85025 ×2; 85610; 85730; 87077; 87086; 87186; 93005; 94760; 96375; 96376; G0378 ×2; U0002; 36415; 36416; 81003; 81015; J0696; J1940; J7999; Q9967

== ENCOUNTER 2022-12-28 08:59 | Emergency (ER) | payer MEDICARE, BC ==
[~2022-12-28 08:59] MED LIST changes: -Iopamidol-370 76% 500 ML 1 ML ONE; +Iopamidol-370 76% 500 ML MDV (1 ML CHARGE) ONE
[2022-12-28 09:35] LABS: #Eosinphils 0.2 thou/uL (0.0-0.7); #Monocytes 1.1 thou/uL (0.11-0.59); #Neutrophils 10.8 thou/uL (1.40-6.50); %Basophils 0.3 % (0.0-1.0); %Eosinophils 1.6 % (0.0-10.0); %Lymphocytes 10.2 % (21.0-51.0); %Monocytes 8.1 % (0.0-10.0); %Neutrophils 79.3 % (42.0-75.0); Hemoglobin 11.6 g/dL (12.0-16.0); Mean Corpuscular HGB CONC 31.1 g/dL (32.0-36.0); Mean Corpuscular Hemoglobin 25.3 pg (27.0-31.0); Mean Corpuscular Volume 81.3 fl (78.0-98.0); Mean Platelet Volume 9.8 fL (7.4-10.4); Platelet Count 260 10x3/uL (130-400); RBC Distribution Width 17.4 % (11.5-14.5); Red Blood Cell (RBC) Count 4.59 mill/uL (4.20-5.40); White Blood Cell (WBC) Count 13.6 10x3/uL (4.8-10.8)
[2022-12-28 10:08] LABS: ALT (SGPT) 18 U/L (8-55); AST (SGOT) 22 U/L (5-34); Albumin 4.2 g/dL (3.4-4.8); Alkaline Phosphatase 77 U/L (40-110); Anion Gap 13 mmol/L (10-20); BUN (Urea Nitrogen) 20 mg/dL (9.8-20.1); Bilirubin, Total 0.4 mg/dL (0.2-1.2); Calc. Creatinine Clearance 0 mL/min (70-130); Calcium 9.7 mg/dL (7.8-10.44); Carbon Dioxide 23 mmol/L (23-31); Chloride 102 mmol/L (98-107); Estimated GFR 42; Globulin 3.7 g/dL (2.4-3.5); Glucose 152 mg/dL (83-110); Potassium 4.2 mmol/L (3.5-5.1); Protein, Total 7.9 g/dL (5.8-8.1); Sodium 134 mmol/L (136-145)
== END 2022-12-28 12:29 | disposition home or self-care (01) ==
LOC: ERS 08:59
DX: J18.9 Pneumonia, unspecified organism (principal); I10 Essential (primary) hypertension; E11.9 Type 2 diabetes mellitus without complications; Z79.899 Other long term (current) drug therapy; Z79.82 Long term (current) use of aspirin
CPT/HCPCS: 36415; 71045; 71275; 80053; 83605; 83880; 84484; 85025; 93005; 94760; Q9967

== ENCOUNTER 2023-05-14 09:25 | Outpatient (CLI) | payer MEDICARE, BC | END 2023-05-14 09:26 | disposition home or self-care (01) | LOC: BICCT 09:25 | PROVIDERS: ATTEND Internal Medicine Critical Care Medicine | DX: R91.8 Other nonspecific abnormal finding of lung field (principal) | CPT/HCPCS: 71250 ==

== ENCOUNTER 2023-05-14 09:46 | Outpatient (CLI) | payer MEDICARE, BC | END 2023-05-14 09:47 | disposition home or self-care (01) | LOC: BICULT 09:46 | PROVIDERS: ATTEND Family Medicine | DX: E07.9 Disorder of thyroid, unspecified (principal); E04.2 Nontoxic multinodular goiter | CPT/HCPCS: 71250; 76536 ==

== ENCOUNTER 2024-01-29 15:42 | Observation (INO) | payer MEDICARE, BC ==
[2024-01-29 16:35] LABS: #Basophils 0.03 10x3/uL (0.0-0.2); %Basophils 0.3 % (0.0-1.0); %Eosinophils 1.8 % (0.0-10.0); %Lymphocytes 21.4 % (21.0-51.0); %Monocytes 6.5 % (0.0-10.0); %Neutrophils 69.7 % (42.0-75.0); Hemoglobin 11.2 g/dL (12.0-16.0); Mean Corpuscular HGB CONC 30.3 g/dL (32.0-36.0); Mean Corpuscular Hemoglobin 22.4 pg (27.0-31.0); Mean Platelet Volume 9.5 fL (7.4-10.4); Platelet Count 287 10x3/uL (130-400); RBC Distribution Width 17.3 % (11.5-14.5)
[2024-01-29 16:49] LABS: ALT (SGPT) 19 U/L (8-55); AST (SGOT) 23 U/L (5-34); Albumin 3.6 g/dL (3.4-4.8); Alkaline Phosphatase 86 U/L (40-110); Anion Gap 16 mmol/L (10-20); BUN (Urea Nitrogen) 18 mg/dL (9.8-20.1); Bilirubin, Total 0.4 mg/dL (0.2-1.2); Calc. Creatinine Clearance 0 mL/min (70-130); Calcium 9.3 mg/dL (7.8-10.44); Carbon Dioxide 24 mmol/L (23-31); Chloride 100 mmol/L (98-107); Estimated GFR 35; Globulin 3.9 g/dL (2.4-3.5); Glucose 289 mg/dL (83-110); Magnesium 2.4 mg/dL (1.6-2.6); Potassium 3.8 mmol/L (3.5-5.1); Protein, Total 7.5 g/dL (5.8-8.1); Sodium 136 mmol/L (136-145)
[2024-01-29 16:51] LABS: Troponin I Less than 0.010 ng/mL (< 0.028)
[2024-01-29 17:21] LABS: Elliptocytes SLIGHT = 2-5 cells HPF (0-1); Microcytosis SLIGHT = 6-15 cells HPF (0-5); Platelet Adequacy Comment Platelets Normal; Polychromasia SLIGHT = 2-3 cells HPF (0-2)
[2024-01-29] MEDS ORDERED: dilTIAZem 25 MG/5 ML VIAL ONE (17:34)
[2024-01-29] MEDS ORDERED: Pantoprazole DR 40 MG TAB PO PRN (18:33)
[2024-01-29] MEDS ORDERED: Acetaminophen 500 MG TAB PO PRN (18:33)
[2024-01-29] MEDS ORDERED: Insulin Lispro 100 UNIT/ML 10 ML VIAL SC PRN (18:36)
[2024-01-29] MEDS ORDERED: Dextrose 5% in Water 1,000 ML IV PRN (18:36)
[2024-01-29] MEDS ORDERED: Ondansetron PF 4 MG/2 ML Vial IVP PRN (18:36)
[2024-01-29] MEDS ORDERED: Dextrose 50% Abboject 50 ML SYRINGE SLOW IVP PRN (18:36)
[2024-01-29] MEDS ORDERED: Acetaminophen 325 MG TAB PO PRN (18:36)
[2024-01-29] MEDS ORDERED: Glucagon 1 MG/ML KIT IM PRN (18:36)
[2024-01-29 19:28] LABS: Troponin I 0.012 ng/mL (< 0.028)
[2024-01-29] MEDS: Gabapentin 300 MG CAP PO SCH (21:07)
[2024-01-29] MEDS: Heparin 5,000 UNITS/ML VIAL SC SCH (21:08)
[2024-01-29] MEDS: Amiodarone 200 MG TAB PO SCH (21:08)
[2024-01-29 22:02] LABS: Troponin I Less than 0.010 ng/mL (< 0.028)
[2024-01-29 22:54] VITALS: BMI 32.0
[2024-01-29] MEDS ORDERED: HYDROcodone/Acetaminophen 5/325 mg Tablet PO SCH (23:59)
[2024-01-30 07:06] LABS: #Basophils 0.03 10x3/uL (0.0-0.2); %Basophils 0.3 % (0.0-1.0); %Eosinophils 3.4 % (0.0-10.0); %Lymphocytes 33.4 % (21.0-51.0); %Neutrophils 54.3 % (42.0-75.0); Hematocrit 34.7 % (36.0-47.0); Hemoglobin 10.4 g/dL (12.0-16.0); Mean Corpuscular Hemoglobin 22.8 pg (27.0-31.0); Mean Corpuscular Volume 75.9 fL (78.0-98.0); Mean Platelet Volume 9.6 fL (7.4-10.4); Platelet Count 262 10x3/uL (130-400); RBC Distribution Width 17.4 % (11.5-14.5); Red Blood Cell (RBC) Count 4.57 mill/uL (4.20-5.40)
[2024-01-30 07:36] LABS: Anion Gap 14 mmol/L (10-20); BUN (Urea Nitrogen) 18 mg/dL (9.8-20.1); Calc. Creatinine Clearance 46 mL/min (70-130); Calcium 9.1 mg/dL (7.8-10.44); Carbon Dioxide 29 mmol/L (23-31); Chloride 103 mmol/L (98-107); Estimated GFR 48; Glucose 133 mg/dL (83-110); Potassium 3.5 mmol/L (3.5-5.1); Sodium 142 mmol/L (136-145)
[2024-01-30] MEDS: Potassium Chloride 10 MEQ TAB PO SCH (08:55)
[2024-01-30] MEDS: Amlodipine 5 MG TAB PO SCH (08:55)
[2024-01-30] MEDS: Metoprolol Tartrate 25 MG TAB PO SCH (08:55)
[2024-01-30] MEDS: Glimepiride 2 MG TAB PO SCH (08:55)
[2024-01-30] MEDS: Fenofibrate Nanocrystallized 145 MG TAB PO SCH (08:55)
[2024-01-30] MEDS: Aspirin Chewable 81 MG TAB PO SCH (08:55)
[2024-01-30] MEDS ORDERED: Furosemide 20 MG TAB PO SCH (09:00)
[2024-01-30] MEDS ORDERED: Losartan 25 MG TAB PO SCH (09:00)
[2024-01-30] MEDS: Insulin Lispro 100 UNIT/ML 10 ML VIAL SC PRN (12:40)
[2024-01-30 15:46] VITALS: BP 142/64; TEMP 98.6
[2024-01-30] MEDS ORDERED: Amiodarone 200 MG TAB PO SCH (21:00)
[2024-01-30] MEDS ORDERED: AMOXicillin 250 MG CAP PO SCH (21:00)
[2024-01-31] MEDS ORDERED: Aspirin 81 mg Enteric Coated Tablet PO SCH (09:00)
[2024-01-31] MEDS ORDERED: Torsemide 20 MG TAB PO SCH (09:00)
[2024-01-31] MEDS ORDERED: Alogliptin 25 MG TAB PO SCH (09:00)
[2024-01-31] MEDS ORDERED: Vitamin E 400 UNITS CAP PO SCH (09:00)
[2024-01-31] MEDS ORDERED: Cholecalciferol 1,000 UNITS (25 MCG) TAB PO SCH (09:00)
== END 2024-01-30 18:36 | disposition home or self-care (01) ==
LOC: ERS 15:42 → 2NO 18:45
PROVIDERS: ADMIT Internal Medicine; ATTEND Family Medicine
DX: I48.0 Paroxysmal atrial fibrillation (principal); N17.9 Acute kidney failure, unspecified; E11.22 Type 2 diabetes mellitus with diabetic chronic kidney disease; I12.9 Hypertensive chronic kidney disease with stage 1 through stage 4 chronic kidney disease, or unspecified chronic kidney disease; N18.30 Chronic kidney disease, stage 3 unspecified; I25.10 Atherosclerotic heart disease of native coronary artery without angina pectoris; E78.5 Hyperlipidemia, unspecified; Z79.85 Long-term (current) use of injectable non-insulin antidiabetic drugs; Z79.84 Long term (current) use of oral hypoglycemic drugs; Z79.4 Long term (current) use of insulin; Z79.82 Long term (current) use of aspirin; Z79.899 Other long term (current) drug therapy; Z88.1 Allergy status to other antibiotic agents; Z88.8 Allergy status to other drugs, medicaments and biological substances; Z96.653 Presence of artificial knee joint, bilateral; Z98.890 Other specified postprocedural states
CPT/HCPCS: 71045; 80048; 80053; 82962 ×2; 83735; 83880; 84484 ×2; 85025 ×2; 93005; 94760; J1644 ×2; J1815; 36415; 36416; 96372; 96374; G0378

== ENCOUNTER 2024-04-14 14:00 | Inpatient (IN) | payer MEDICARE, BC ==
[2024-04-20] MEDS ORDERED: fentaNYL 50 mcg/mL 1 mL Vial ONE ×2 (09:38→12:32)
[2024-04-20] MEDS ORDERED: Bupivacaine 0.25% HCL 30 ML VIAL ONE (09:38)
[2024-04-20] MEDS ORDERED: Midazolam HCl 2 mg/2 ml Vial ONE (09:38)
[2024-04-20] MEDS ORDERED: Dextrose 50% Abboject 50 ML SYRINGE ONE (10:07)
[2024-04-20 10:40] LABS: Hemoglobin A1c 7.6 % (4.0-6.0)
[2024-04-20] MEDS ORDERED: Lidocaine 1% PF 5 ML VIAL ONE ×2 (10:43→11:04)
[2024-04-20] MEDS ORDERED: Rocuronium Bromide 10 MG/ML (10ML VIAL) ONE (10:44)
[2024-04-20] MEDS ORDERED: Bupivacaine/Epinephrine 0.25% 30 ML VIAL ONE (11:35)
[2024-04-20] MEDS ORDERED: ePHEDrine Sulfate 50 MG/10 ML VIAL ONE (12:06)
[2024-04-20] MEDS ORDERED: cefOXitin 2 GM VIAL ONE ×2 (13:10→15:40)
[2024-04-20] MEDS ORDERED: Sodium Chloride 0.9% 100 ML ONE ×2 (13:11→15:42)
[2024-04-20] MEDS ORDERED: PROPOFOL 200 MG/20 ML VIAL ONE (13:33)
[2024-04-20] MEDS ORDERED: Albuterol HFA (OR) 200 PUFF INH ONE (13:33)
[2024-04-20] MEDS ORDERED: Dexamethasone 20 MG/5 ML VIAL ONE (13:33)
[2024-04-20] MEDS ORDERED: fentaNYL PF 100 MCG/2 ML SYRINGE ONE ×2 (14:00→16:54)
[2024-04-20] MEDS ORDERED: SUGAMMADEX SODIUM 200 MG/2 ML VIAL ONE (15:46)
[2024-04-20] MEDS ORDERED: HYDROmorphone 0.5 MG/0.5 ML SYRINGE ONE (16:32)
[2024-04-20] MEDS ORDERED: Glucagon 1 MG/ML KIT IM PRN (16:43)
[2024-04-20] MEDS ORDERED: Dextrose 50% Abboject 50 ML SYRINGE SLOW IVP PRN (16:43)
[2024-04-20] MEDS ORDERED: Promethazine HCl 25 MG/ML VIAL IM PRN (16:43)
[2024-04-20] MEDS ORDERED: hydrALAZINE 20 MG/ML VIAL SLOW IVP PRN (16:43)
[2024-04-20] MEDS ORDERED: Dextrose 5% in Water 1,000 ML IV PRN (16:43)
[2024-04-20] MEDS ORDERED: Ondansetron PF 4 MG/2 ML Vial IVP PRN (16:43)
[2024-04-20] MEDS ORDERED: diphenhydrAMINE 25 MG CAP PO PRN (17:00)
[2024-04-20] MEDS ORDERED: diphenhydrAMINE 50 MG/ML VIAL IM/IV PRN (17:00)
[2024-04-20] MEDS ORDERED: Naloxone HCl 0.4 mg/ml Vial IV PRN (17:00)
[2024-04-20] MEDS ORDERED: Fentanyl CADD 100 ML IVPB SCH (17:00)
[2024-04-20] MEDS: Acetaminophen 325 MG TAB PO SCH (22:24)
[2024-04-20] MEDS: Famotidine 20 MG TAB PO SCH (22:24)
[2024-04-20] MEDS: Amiodarone 200 MG TAB PO SCH (22:24)
[2024-04-20] MEDS: D5 1/2 NS w/20 mEq KCL 1,000 ML IV SCH (22:24)
[2024-04-20] MEDS: LevoFLOXacin 500 mg/D5W 500 MG in Premix 1 BAG IVPB SCH (22:24)
[2024-04-20] MEDS: Famotidine/PF 20 mg/2ml Vial SLOW IVP SCH (22:25)
[2024-04-21 05:19] LABS: Anion Gap 13 mmol/L (10-20); BUN (Urea Nitrogen) 14 mg/dL (9.8-20.1); Calc. Creatinine Clearance 41 mL/min (70-130); Calcium 8.3 mg/dL (7.8-10.44); Carbon Dioxide 25 mmol/L (23-31); Chloride 104 mmol/L (98-107); Estimated GFR 43; Glucose 212 mg/dL (83-110); Potassium 3.6 mmol/L (3.5-5.1); Sodium 138 mmol/L (136-145)
[2024-04-21] MEDS: Ondansetron PF 4 MG/2 ML Vial IVP PRN (05:25)
[2024-04-21 05:50] LABS: #Basophils Less than 0.03 10x3/uL (0.0-0.2); %Basophils 0.1 % (0.0-1.0); %Eosinophils 0.4 % (0.0-10.0); %Lymphocytes 11.1 % (21.0-51.0); %Neutrophils 81.2 % (42.0-75.0); Hematocrit 37.2 % (36.0-47.0); Hemoglobin 11.3 g/dL (12.0-16.0); Mean Corpuscular HGB CONC 30.4 g/dL (32.0-36.0); Mean Corpuscular Volume 82.3 fL (78.0-98.0); Mean Platelet Volume 9.7 fL (7.4-10.4); Platelet Count 222 10x3/uL (130-400); RBC Distribution Width 26.5 % (11.5-14.5); Red Blood Cell (RBC) Count 4.52 mill/uL (4.20-5.40)
[2024-04-21 06:53] LABS: Anisocytosis SLIGHT = 6-15 cells HPF (0-5); Elliptocytes SLIGHT = 2-5 cells HPF (0-1); Macrocytosis SLIGHT = 6-15 cells HPF (0-5); Platelet Adequacy Comment Platelets Normal; Poikilocytosis SLIGHT = 6-15 cells HPF (0-5); Polychromasia MODERATE = 3-4 cells HPF (0-2); Tear Drops SLIGHT = 2-5 cells HPF (0-1)
[2024-04-21] MEDS: Spironolactone 25 MG TAB PO SCH (09:35)
[2024-04-21] MEDS: Gabapentin 300 MG CAP PO SCH ×2 (09:38→19:53)
[2024-04-21] MEDS: Torsemide 20 MG TAB PO SCH (09:40)
[2024-04-21] MEDS: Amlodipine 5 MG TAB PO SCH (09:41)
[2024-04-21] MEDS: Enoxaparin 40 MG (0.4 mL) SYRINGE SC SCH (09:43)
[2024-04-21] MEDS: Insulin Lispro 100 UNIT/ML 10 ML VIAL SC PRN (13:24)
[2024-04-21] MEDS: Promethazine HCl 25 MG/ML VIAL IM PRN (23:20)
[2024-04-22] MEDS: Famotidine/PF 20 mg/2ml Vial SLOW IVP SCH (09:01)
[2024-04-22] MEDS: Famotidine 20 MG TAB PO SCH (09:02)
[2024-04-23] MEDS: Ipratropium/Albuterol 3 ML NEB NEB PRN (10:19)
[2024-04-23 10:22] VITALS: BMI 31.8
[2024-04-23] MEDS ORDERED: HYDROcodone/Acetaminophen 5/325 mg Tablet PO PRN ×2 (11:34→11:35)
[2024-04-23] MEDS: traMADol HCl 50 MG TAB PO PRN (13:33)
[2024-04-23 18:36] VITALS: BMI 32.0
[2024-04-24] MEDS: Furosemide 40 MG (4 mL) VIAL SLOW IVP SCH (09:16)
[2024-04-24] MEDS: traMADol HCl 50 MG TAB PO PRN (09:16)
[2024-04-24] MEDS: Polyethylene Glycol 3350 17 GM Packet PO SCH (09:19)
[2024-04-25] MEDS: D5 1/2 NS w/20 mEq KCL 1,000 ML IV SCH (05:47)
[2024-04-25 07:09] LABS: #Basophils 0.04 10x3/uL (0.0-0.2); %Basophils 0.6 % (0.0-1.0); %Eosinophils 4.6 % (0.0-10.0); %Neutrophils 62.4 % (42.0-75.0); Hematocrit 33.4 % (36.0-47.0); Hemoglobin 10.2 g/dL (12.0-16.0); Mean Corpuscular HGB CONC 30.5 g/dL (32.0-36.0); Mean Corpuscular Hemoglobin 25.7 pg (27.0-31.0); Mean Corpuscular Volume 84.1 fL (78.0-98.0); Mean Platelet Volume 9.6 fL (7.4-10.4); Platelet Count 271 10x3/uL (130-400); RBC Distribution Width 26.3 % (11.5-14.5); Red Blood Cell (RBC) Count 3.97 mill/uL (4.20-5.40)
[2024-04-25 07:45] LABS: Anion Gap 14 mmol/L (10-20); BUN (Urea Nitrogen) 19 mg/dL (9.8-20.1); Calc. Creatinine Clearance 43 mL/min (70-130); Calcium 8.8 mg/dL (7.8-10.44); Carbon Dioxide 28 mmol/L (23-31); Chloride 99 mmol/L (98-107); Estimated GFR 45; Glucose 158 mg/dL (83-110); Potassium 3.8 mmol/L (3.5-5.1); Sodium 137 mmol/L (136-145)
[2024-04-25] MEDS: Polyethylene Glycol 3350 17 GM Packet PO SCH (10:18)
[2024-04-26 04:50] VITALS: TEMP 97.8
[2024-04-26 07:50] VITALS: BP 148/71
== END 2024-04-26 14:00 | disposition home or self-care (01) | DRG 330 ==
LOC: SURG A 04-20 08:01
PROVIDERS: ADMIT Surgery; ATTEND Surgery
PROC: 0DTN0ZZ Resection of Sigmoid Colon, Open Approach (ICD-10-PCS; principal; 2024-04-20)
PROC: 0DJD4ZZ Inspection of Lower Intestinal Tract, Percutaneous Endoscopic Approach (ICD-10-PCS; 2024-04-20)
PROC: 0D1M0Z4 Bypass Descending Colon to Cutaneous, Open Approach (ICD-10-PCS; 2024-04-20)
PROC: 8E0W0CZ Robotic Assisted Procedure of Trunk Region, Open Approach (ICD-10-PCS; 2024-04-20)
DX: C20 Malignant neoplasm of rectum (principal); I50.32 Chronic diastolic (congestive) heart failure; K56.7 Ileus, unspecified; E11.9 Type 2 diabetes mellitus without complications; I11.0 Hypertensive heart disease with heart failure; E78.1 Pure hyperglyceridemia; K63.89 Other specified diseases of intestine; M06.9 Rheumatoid arthritis, unspecified; Z96.653 Presence of artificial knee joint, bilateral; R11.0 Nausea; E66.9 Obesity, unspecified; Z88.1 Allergy status to other antibiotic agents; Z88.8 Allergy status to other drugs, medicaments and biological substances; Z95.1 Presence of aortocoronary bypass graft; Z79.82 Long term (current) use of aspirin; Z79.899 Other long term (current) drug therapy; Z79.4 Long term (current) use of insulin; Z90.710 Acquired absence of both cervix and uterus; Z68.32 Body mass index [BMI] 32.0-32.9, adult
CPT/HCPCS: 36415; 36416; 80048; 83036; 85025; 88309; 97139; C1713; C1889; J0665; J0694; J1100; J1170; J1642; J1650; J1815; J1940; J1956; J2250; J2405; J2550; J2704; J3010; J3480; J7620; J7999

== ENCOUNTER 2024-05-01 21:42 | Emergency (ER) | payer MEDICARE, BC ==
[2024-05-01 22:27] LABS: #Basophils 0.05 10x3/uL (0.0-0.2); %Basophils 0.5 % (0.0-1.0); %Eosinophils 6.6 % (0.0-10.0); %Lymphocytes 27.1 % (21.0-51.0); %Monocytes 8.2 % (0.0-10.0); %Neutrophils 56.7 % (42.0-75.0); Hematocrit 36.8 % (36.0-47.0); Hemoglobin 11.1 g/dL (12.0-16.0); Mean Corpuscular HGB CONC 30.2 g/dL (32.0-36.0); Mean Corpuscular Hemoglobin 26.4 pg (27.0-31.0); Mean Corpuscular Volume 87.4 fL (78.0-98.0); Mean Platelet Volume 9.2 fL (7.4-10.4); Platelet Count 324 10x3/uL (130-400); RBC Distribution Width 26.2 % (11.5-14.5); Red Blood Cell (RBC) Count 4.21 mill/uL (4.20-5.40)
[2024-05-01 22:40] LABS: ALT (SGPT) 29 U/L (8-55); AST (SGOT) 35 U/L (5-34); Albumin 3.4 g/dL (3.4-4.8); Alkaline Phosphatase 78 U/L (40-110); Anion Gap 16 mmol/L (10-20); BUN (Urea Nitrogen) 32 mg/dL (9.8-20.1); Bilirubin, Total 0.3 mg/dL (0.2-1.2); Calc. Creatinine Clearance 0 mL/min (70-130); Calcium 8.8 mg/dL (7.8-10.44); Carbon Dioxide 23 mmol/L (23-31); Chloride 102 mmol/L (98-107); Estimated GFR 29; Glucose 233 mg/dL (83-110); Potassium 4.2 mmol/L (3.5-5.1); Protein, Total 7.4 g/dL (5.8-8.1); Sodium 137 mmol/L (136-145)
[2024-05-01 22:46] LABS: Anisocytosis SLIGHT = 6-15 cells HPF (0-5); Burr Cells SLIGHT = 2-5 cells HPF (0-1); Elliptocytes SLIGHT = 2-5 cells HPF (0-1); Platelet Adequacy Comment Platelets Normal; Polychromasia SLIGHT = 2-3 cells HPF (0-2); Schistocytes SLIGHT = 2-5 cells HPF (0-1)
== END 2024-05-02 00:20 | disposition home or self-care (01) ==
LOC: ERS 21:42
DX: T81.31XA Disruption of external operation (surgical) wound, not elsewhere classified, initial encounter (principal); I10 Essential (primary) hypertension; E11.9 Type 2 diabetes mellitus without complications; Z95.1 Presence of aortocoronary bypass graft; Z96.652 Presence of left artificial knee joint
CPT/HCPCS: 36415; 80053; 85025; 99283

== ENCOUNTER 2024-05-14 09:05 | Outpatient (CLI) | payer MEDICARE, BC | END 2024-05-14 09:06 | disposition home or self-care (01) | LOC: BICRAD 09:05 | PROVIDERS: ATTEND Internal Medicine Critical Care Medicine | DX: R06.00 Dyspnea, unspecified (principal) | CPT/HCPCS: 71046 ==

== ENCOUNTER 2024-07-19 10:36 | Outpatient (CLI) | payer MEDICARE, BC | END 2024-07-19 10:37 | disposition home or self-care (01) | LOC: SCSRAD 10:36 | PROVIDERS: ATTEND Family Medicine | DX: J40 Bronchitis, not specified as acute or chronic (principal) | CPT/HCPCS: 71046 ==

== ENCOUNTER 2024-07-22 17:09 | Emergency (ER) | payer MEDICARE, BC ==
[2024-07-22] MEDS ORDERED: Acetaminophen/Codeine 30-300mg Tablet ONE (19:05)
== END 2024-07-22 19:45 | disposition home or self-care (01) ==
LOC: ERS 17:09
DX: S86.912A Strain of unspecified muscle(s) and tendon(s) at lower leg level, left leg, initial encounter (principal); I10 Essential (primary) hypertension; E11.9 Type 2 diabetes mellitus without complications; X50.1XXA Overexertion from prolonged static or awkward postures, initial encounter
CPT/HCPCS: 99283

== ENCOUNTER 2025-02-10 23:36 | Emergency (ER) | payer MEDICARE, BC ==
[2025-02-11 00:01] LABS: #Basophils 0.04 10x3/uL (0.0-0.2); #Eosinophils 0.22 10x3/uL (0.0-0.7); #Monocytes 0.66 10x3/uL (0.11-0.59); #Neutrophils 4.66 10x3/uL (1.40-6.50); %Basophils 0.5 % (0.0-1.0); %Eosinophils 2.8 % (0.0-10.0); %Lymphocytes 27.5 % (21.0-51.0); %Monocytes 8.5 % (0.0-10.0); %Neutrophils 60.1 % (42.0-75.0); Hematocrit 31.7 % (36.0-47.0); Hemoglobin 10.0 g/dL (12.0-16.0); Mean Corpuscular Hemoglobin 28.3 pg (27.0-31.0); Mean Corpuscular Volume 89.8 fL (78.0-98.0); Platelet Count 228 10x3/uL (130-400); Red Blood Cell (RBC) Count 3.53 mill/uL (4.20-5.40); White Blood Cell (WBC) Count 7.77 10x3/uL (4.8-10.8)
[2025-02-11 00:15] LABS: INR-International Normal Ratio 1.2; PTT 32.5 sec (22.9-36.1); Prothrombin Time 15.5 sec (12.0-14.7)
[2025-02-11 00:18] LABS: ALT (SGPT) 41 U/L (Less than 34); AST (SGOT) 44 U/L (11-34); Albumin 3.8 g/dL (3.1-4.5); Alkaline Phosphatase 56 U/L (40-110); Anion Gap 17 mmol/L (10-20); BUN (Urea Nitrogen) 34 mg/dL (9.8-20.1); Bilirubin, Total 0.3 mg/dL (0.3-1.2); Calc. Creatinine Clearance 0 mL/min (70-130); Calcium 8.7 mg/dL (7.8-10.44); Carbon Dioxide 19 mmol/L (23-31); Chloride 106 mmol/L (98-107); Globulin 3.8 g/dL (2.4-3.5); Glucose 170 mg/dL (83-110); Lipase 163 U/L (8-78); Potassium 4.3 mmol/L (3.5-5.1); Sodium 138 mmol/L (136-145)
[2025-02-11 04:22] LABS: Hematocrit 33.3 % (36.0-47.0); Hemoglobin 10.3 g/dL (12.0-16.0); Platelet Count 230 10x3/uL (130-400)
== END 2025-02-11 05:19 | disposition home or self-care (01) ==
LOC: ERS 23:36
DX: K94.01 Colostomy hemorrhage (principal); D64.9 Anemia, unspecified; I11.0 Hypertensive heart disease with heart failure; I50.9 Heart failure, unspecified; E11.9 Type 2 diabetes mellitus without complications; I48.91 Unspecified atrial fibrillation; Z79.84 Long term (current) use of oral hypoglycemic drugs; Z79.82 Long term (current) use of aspirin; Z79.4 Long term (current) use of insulin; Z79.899 Other long term (current) drug therapy
CPT/HCPCS: 36415; 80053; 83690; 85014; 85018; 85025; 85049; 85610; 85730; 86850; 86900; 86901; 93005; 99284